=== PATIENT | male | born 1950 | race Caucasian/White ===

== ENCOUNTER 2017-08-13 15:26 | Outpatient (CLI) | payer MEDICARE | END 2017-08-13 15:27 | disposition home or self-care (01) | LOC: BICRAD 15:26 | PROVIDERS: ATTEND Family Medicine | DX: J20.9 Acute bronchitis, unspecified (principal) | CPT/HCPCS: 71046 ==

== ENCOUNTER 2017-08-29 09:26 | Outpatient (CLI) | payer MEDICARE ==
[2017-08-29] MEDS ORDERED: Iopamidol 370 76% 100 ML VIAL ONE (14:13)
== END 2017-08-29 09:27 | disposition home or self-care (01) ==
LOC: BICCT 09:26
PROVIDERS: ATTEND Family Medicine
DX: R05 Cough (principal); R63.4 Abnormal weight loss; J44.9 Chronic obstructive pulmonary disease, unspecified; I70.90 Unspecified atherosclerosis; K57.90 Diverticulosis of intestine, part unspecified, without perforation or abscess without bleeding
CPT/HCPCS: 71260; 74177

== ENCOUNTER 2018-11-24 09:42 | Outpatient (CLI) | payer MEDICARE ==
--- NOTE | 2018-11-24 10:05 | RAD ---
Exam: 1 view abdomen COMPARISON: None HISTORY: Renal calculi. FINDINGS: Nonspecific bowel gas pattern. No suspicious densities projecting over the expected course of either ureter or over either renal silhouette. Calcifications in the pelvis are presumably phleboliths. No osseous abnormalities IMPRESSION: Nonspecific bowel gas pattern. No radiographic evidence of nephrolithiasis or ureteral st ones.
== END 2018-11-24 09:43 | disposition home or self-care (01) ==
LOC: BICRAD 09:42
PROVIDERS: ATTEND Urology
DX: Z12.5 Encounter for screening for malignant neoplasm of prostate (principal); N20.0 Calculus of kidney; N48.9 Disorder of penis, unspecified
CPT/HCPCS: 36415; 74018; G0103

== ENCOUNTER 2020-01-19 09:47 | Outpatient (CLI) | payer MEDICARE ==
--- NOTE | 2020-01-19 11:08 | ULT ---
EXAM: US Abdominal CLINICAL HISTORY: Abdominal pain. COMPARISON: None. FINDINGS: Pancreas: The head of the pancreas in the body of the pancreas have a normal appearance. Remainder t he pancreas is obscured IVC: Visualized IVC has a normal caliber. Aorta: Atherosclerosis and mild irregularity of the abdominal aorta. There does appear to be dilatati on of the mid abdominal aorta the diameter of approximately 3.4 cm. There appears to be noncalcified atherosclerosis in the mid abdominal aorta, incompletely evaluated. Liver:Normal hepatic parenchymal echotexture. No hepatic masses or intrahepatic biliary dilatation. T he contour of the hepatic margin is maintained. Gallbladder: No sonographic evidence of cholelithiasis, gallbladder wall thickening or pericholecysti c fluid He's sign:Negative CBD: 0.26 cm common bile duct diameter Portal vein: Patent. Appropriate directional flow. Right kidney: Normal cortical echotexture. No hydronephrosis. Right kidney measuring 9.4 x 3.5 x 4.0 cm in length. Left kidney: Normal cortical echotexture. No hydronephrosis . Left kidney measuring 5.4 x 9.8 x 4.2 cm in length Spleen: Normal echotexture, measuring 11.4 cm IMPRESSION: 1. No sonographic evidence of cholelithiasis or cholecystitis 2. No evidence of hydronephrosis 3. Atherosclerosis and aneurysmal dilatation of the abdominal aorta. Correlation made with an abdomen pelvis CT 08/29/2017 doesn't demonstrate atherosclerosis and mild prominence of the infrarenal abdominal aorta.
== END 2020-01-19 09:48 | disposition home or self-care (01) ==
LOC: BICULT 09:47
PROVIDERS: ATTEND Family Medicine
DX: R10.84 Generalized abdominal pain (principal); I70.0 Atherosclerosis of aorta; I71.3 Abdominal aortic aneurysm, ruptured
CPT/HCPCS: 36415; 80053; 80061; 81001; 82150; 83690; 84153; 85025; 87086; 93975

== ENCOUNTER 2020-02-03 05:45 | Outpatient (CLI) | payer MEDICARE, OTHER ==
--- NOTE | 2020-02-03 10:10 | RAD ---
XR Chest Pa Lat STANDARD HISTORY: Preoperative evaluation COMPARISON: 08/13/2017 FINDINGS: The heart size is normal. The lungs are well expanded without focal areas of consolidation, pneumothorax or pleural effusions. Degenerative changes are present in the spine. IMPRESSION: No radiographic evidence of acute cardiopulmonary process.
[2020-02-03 14:13] LABS: #Basophils 0.1 thou/uL (0.0-0.2); #Eosinphils 0.2 thou/uL (0.0-0.7); #Monocytes 0.6 thou/uL (0.11-0.59); %Basophils 0.9 % (0.0-1.0); %Eosinophils 1.6 % (0.0-10.0); %Monocytes 5.8 % (0.0-10.0); %Neutrophils 71.7 % (42.0-75.0); Hemoglobin 13.2 g/dL (14.0-18.0); Mean Corpuscular HGB CONC 31.8 g/dL (32.0-36.0); Mean Corpuscular Hemoglobin 30.7 pg (27.0-31.0); Mean Corpuscular Volume 96.7 fL (78.0-98.0); Platelet Count 201 thou/uL (130-400); RBC Distribution Width 12.5 % (11.5-14.5); Red Blood Cell (RBC) Count 4.31 mill/uL (4.70-6.10); White Blood Cell (WBC) Count 9.8 thou/uL (4.8-10.8)
[2020-02-03 14:31] LABS: Anion Gap 13 mmol/L (10-20); BUN (Urea Nitrogen) 20 mg/dL (8.4-25.7); Calc. Creatinine Clearance 0 mL/min (70-130); Calcium 8.8 mg/dL (7.8-10.44); Carbon Dioxide 25 mmol/L (23-31); Chloride 106 mmol/L (98-107); Estimated GFR-MDRD 54; Glucose 94 mg/dL (80-115); Potassium 4.3 mmol/L (3.5-5.1); Sodium 140 mmol/L (136-145)
[2020-02-04 16:02] LABS: SARS-CoV-2 MS2 Positive; SARS-CoV-2 N Gene Negative; SARS-CoV-2 S Gene Negative; SARS-CoV-2 orf1ab Negative
--- NOTE | 2020-02-07 10:10 | EKG ---
Test Reason : Blood Pressure : / mmHG Vent. Rate : 077 BPM Atrial Rate : 077 BPM P-R Int : 130 ms QRS Dur : 088 ms QT Int : 412 ms P-R-T Axes : 067 083 040 degrees QTc Int : 466 ms Sinus rhythm with preamuture atrial complexes and premature ventricular complexes. Nonspecific ST abnormality Abnormal ECG When compared with ECG of 27-DEC-2012 18:40, Abberant conduction is now Present QT has lengthened Confirmed by NUNO DIAZ (2) on 02/07/2020 10:09:38 AM Referred By: JOE Confirmed By:NUNO DIAZ
== END 2020-02-03 05:46 | disposition home or self-care (01) ==
LOC: LABBT 05:45
PROVIDERS: ATTEND Internal Medicine Cardiovascular Disease
DX: Z01.818 Encounter for other preprocedural examination (principal); Z11.59 Encounter for screening for other viral diseases; I42.9 Cardiomyopathy, unspecified
CPT/HCPCS: 71046; 80048; 85025; 93005; U0003; 87635; 93010

== ENCOUNTER 2020-02-08 06:01 | Day surgery (SDC) | payer MEDICARE ==
[2020-01-31 13:19] VITALS: BMI 19.5
[2020-02-08] MEDS ORDERED: Heparin 10,000 UNITS/1 ML VIAL ONE (06:29)
[2020-02-08] MEDS ORDERED: Midazolam HCl 2 mg/2 ml Vial ONE (07:04)
[2020-02-08] MEDS ORDERED: Fentanyl 100 MCG/2 ML VIAL ONE (07:04)
[2020-02-08] MEDS ORDERED: Protamine Sulfate 50 MG/5 ML VIAL ONE (07:19)
[2020-02-08] MEDS ORDERED: Iopamidol 370 76% 100 ML VIAL ONE (10:03)
[2020-02-08] MEDS ORDERED: Iopamidol 370 76% 50 ML VIAL FS ONE (10:03)
[2020-02-08] MEDS ORDERED: PRALUENT PEN SC SCH (12:45)
[2020-02-08] MEDS ORDERED: ALPRAZolam 0.5 MG TAB PO SCH (15:00)
[2020-02-08] MEDS ORDERED: Carvedilol 6.25 MG TAB PO SCH (21:00)
[2020-02-09] MEDS ORDERED: Furosemide 20 MG TAB PO SCH (09:00)
[2020-02-09] MEDS ORDERED: Atorvastatin Calcium 10 MG TAB PO SCH (09:00)
[2020-02-09] MEDS ORDERED: Aspirin 81 mg Enteric Coated Tablet PO SCH (09:00)
== END 2020-02-08 14:55 | disposition home or self-care (01) ==
LOC: CCL 06:01
PROVIDERS: ATTEND Internal Medicine Cardiovascular Disease
PROC: 4A023N7 Measurement of Cardiac Sampling and Pressure, Left Heart, Percutaneous Approach (ICD-10-PCS; principal; 2020-02-08)
PROC: B2111ZZ Fluoroscopy of Multiple Coronary Arteries using Low Osmolar Contrast (ICD-10-PCS; 2020-02-08)
DX: I42.9 Cardiomyopathy, unspecified (principal); I25.10 Atherosclerotic heart disease of native coronary artery without angina pectoris; I49.3 Ventricular premature depolarization; I47.1 Supraventricular tachycardia; I10 Essential (primary) hypertension; E78.00 Pure hypercholesterolemia, unspecified; F17.210 Nicotine dependence, cigarettes, uncomplicated; F41.9 Anxiety disorder, unspecified; F32.9 Major depressive disorder, single episode, unspecified; Z79.82 Long term (current) use of aspirin; Z79.899 Other long term (current) drug therapy; Z88.1 Allergy status to other antibiotic agents
CPT/HCPCS: 85347; 93458; 99152; J1644; J2250; J2720; J3010; Q9967

== ENCOUNTER 2020-04-27 23:07 | Emergency (ER) | payer MEDICARE, OTHER ==
[2020-04-27] MEDS ORDERED: Aspirin 325 MG TAB ONE (23:29)
[2020-04-27 23:30] LABS: #Basophils 0.1 thou/uL (0.0-0.2); #Eosinphils 0.2 thou/uL (0.0-0.7); #Lymphocytes 2.3 thou/uL (1.20-3.40); #Monocytes 0.7 thou/uL (0.11-0.59); #Neutrophils 4.2 thou/uL (1.40-6.50); %Basophils 1.4 % (0.0-1.0); %Eosinophils 3.1 % (0.0-10.0); %Lymphocytes 31.3 % (21.0-51.0); %Monocytes 8.8 % (0.0-10.0); %Neutrophils 55.4 % (42.0-75.0); Hemoglobin 13.2 g/dL (14.0-18.0); Mean Corpuscular HGB CONC 33.7 g/dL (32.0-36.0); Mean Corpuscular Hemoglobin 33.2 pg (27.0-31.0); Mean Corpuscular Volume 98.4 fL (78.0-98.0); Mean Platelet Volume 7.1 fL (7.4-10.4); Platelet Count 197 thou/uL (130-400); Red Blood Cell (RBC) Count 3.97 mill/uL (4.70-6.10); White Blood Cell (WBC) Count 7.5 thou/uL (4.8-10.8)
[2020-04-27 23:50] LABS: ALT (SGPT) 15 U/L (8-55); AST (SGOT) 16 U/L (5-34); Albumin 3.9 g/dL (3.4-4.8); Alkaline Phosphatase 71 U/L (40-110); Anion Gap 13 mmol/L (10-20); BUN (Urea Nitrogen) 21 mg/dL (8.4-25.7); Bilirubin, Total 0.6 mg/dL (0.2-1.2); Calc. Creatinine Clearance 0 mL/min (70-130); Calcium 9.1 mg/dL (7.8-10.44); Carbon Dioxide 26 mmol/L (23-31); Chloride 106 mmol/L (98-107); Estimated GFR-MDRD 61; Globulin 2.7 g/dL (2.4-3.5); Glucose 117 mg/dL (80-115); Potassium 3.8 mmol/L (3.5-5.1); Protein, Total 6.6 g/dL (5.8-8.1); Sodium 141 mmol/L (136-145)
[2020-04-28 02:37] LABS: Troponin I 0.022 ng/mL (< 0.028)
[2020-04-28 05:34] LABS: Troponin I 0.017 ng/mL (< 0.028)
--- NOTE | 2020-04-28 05:45 | RAD ---
PORTABLE CHEST: 04/27/20 PROVIDED CLINICAL HISTORY: Chest pain. FINDINGS: comparison 03/10/20. Cardiac and mediastinal silhouette is unchanged in appearance. Left subclavian cardiac pacing device is again noted in similar position. Conspicuous chronic obstructive changes are seen. There is no foc al consolidation evident. The left lung base is not included, limiting evaluation for pleural fluid. There is a linear attenuation difference overlying the left lung apex. Lung markings are thought to b e seen peripheral to this although this is not completely certain. IMPRESSION: Linear attenuation difference involving the left lung apex, probably artifactual. Correlation with in spiration and expiratory radiographs is recommended for further evaluation. POS: LUTHER
--- NOTE | 2020-04-28 08:11 | CT ---
PRELIMINARY REPORT/[facility]/EMERGENCY AFTER HOURS PROCEDURE: EXAM: CTA Chest with Intravenous Contrast CLINICAL HISTORY: M69, Patient presents with 1 hour of central chest pain. He denies associated symptoms. He has no lig htheadedness or dizziness, shortness of breath, nausea, cough, or fever. He says he has not had pain like this in the past. Of note, patient had an internal defibrillator placed last month. TECHNIQUE: Axial CTA images of the chest with intravenous contrast. Three-dimensional MIP/volume rendered reform ations were performed. CONTRAST: With; ISO 370 100 COMPARISON: None provided. FINDINGS: PULMONARY ARTERIES There is no intraluminal filling defect suspicious for PE. AORTA No thoracic aortic aneurysm or dissection. LUNGS Emphysema, relatively basilar-predominant. This is nonspecific but raises the possibility of alpha-1 antitrypsin deficiency. Calcified granuloma in the anterior left upper lobe PLEURAL SPACES Moderate pericardial effusion. HEART AND MEDIASTINUM Coronary artery disease. Small hiatal hernia. BONES No focal osseous abnormality or acute fracture. UPPER ABDOMEN Images through the upper abdomen are unremarkable. IMPRESSION: 1. There is no intraluminal filling defect suspicious for PE. 2. Moderate pericardial effusion. 3. Coronary artery disease. 4. Small hiatal hernia. 5. Emphysema, relatively basilar-predominant distribution. This is nonspecific but raises the possibi lity of alpha-1 antitrypsin deficiency. ELECTRONICALLY SIGNED BY: Simón Cook MD Apr 28, 2020 2:12:47 AM CDT This report is intended for review by the ordering physician only, in accordance of law. If you recei ve this report in error, please call [facility] at [phone]. FINAL REPORT EMERGENT AFTER HOURS CTA OF THE CHEST WITH CONTRAST: FINDINGS/IMPRESSION: I agree with the findings and impression given in the preliminary report per [facility] physici an. 1. No evidence of pulmonary thromboembolism. 2. Pericardial effusion. 3. Emphysema. POS: YORDANA
[2020-04-28] MEDS ORDERED: Iopamidol-370 76% 500 ML 1 ML ONE (11:25)
== END 2020-04-28 06:06 | disposition home or self-care (01) ==
LOC: ERS 23:07
DX: I42.9 Cardiomyopathy, unspecified (principal); I11.0 Hypertensive heart disease with heart failure; I50.9 Heart failure, unspecified; E78.5 Hyperlipidemia, unspecified; E78.00 Pure hypercholesterolemia, unspecified; F41.9 Anxiety disorder, unspecified; F17.290 Nicotine dependence, other tobacco product, uncomplicated; Z79.899 Other long term (current) drug therapy; Z79.82 Long term (current) use of aspirin; Z85.828 Personal history of other malignant neoplasm of skin
CPT/HCPCS: 36415; 71045; 71275; 80053; 84484; 85025; 93005; 94760; Q9967

== ENCOUNTER 2020-05-08 03:49 | Emergency (ER) | payer MEDICARE ==
[2020-05-08 04:52] LABS: #Basophils 0.1 thou/uL (0.0-0.2); #Eosinphils 0.3 thou/uL (0.0-0.7); #Lymphocytes 2.7 thou/uL (1.20-3.40); #Monocytes 0.5 thou/uL (0.11-0.59); #Neutrophils 3.4 thou/uL (1.40-6.50); %Basophils 0.9 % (0.0-1.0); %Eosinophils 3.7 % (0.0-10.0); %Lymphocytes 39.2 % (21.0-51.0); %Monocytes 6.9 % (0.0-10.0); %Neutrophils 49.2 % (42.0-75.0); Mean Corpuscular HGB CONC 33.1 g/dL (32.0-36.0); Mean Corpuscular Hemoglobin 32.7 pg (27.0-31.0); Mean Corpuscular Volume 98.9 fL (78.0-98.0); Mean Platelet Volume 7.3 fL (7.4-10.4); Platelet Count 180 thou/uL (130-400); RBC Distribution Width 12.9 % (11.5-14.5); Red Blood Cell (RBC) Count 3.67 mill/uL (4.70-6.10); White Blood Cell (WBC) Count 6.9 thou/uL (4.8-10.8)
[2020-05-08 05:14] LABS: ALT (SGPT) 15 U/L (8-55); AST (SGOT) 17 U/L (5-34); Albumin 3.7 g/dL (3.4-4.8); Alkaline Phosphatase 70 U/L (40-110); Anion Gap 15 mmol/L (10-20); BUN (Urea Nitrogen) 17 mg/dL (8.4-25.7); Bilirubin, Total 0.6 mg/dL (0.2-1.2); Calc. Creatinine Clearance 0 mL/min (70-130); Carbon Dioxide 25 mmol/L (23-31); Chloride 106 mmol/L (98-107); Estimated GFR-MDRD 73; Globulin 2.6 g/dL (2.4-3.5); Glucose 84 mg/dL (80-115); Potassium 3.9 mmol/L (3.5-5.1); Protein, Total 6.3 g/dL (5.8-8.1); Sodium 142 mmol/L (136-145)
--- NOTE | 2020-05-08 08:01 | RAD ---
RADIOGRAPH CHEST 1 VIEW: DATE: 05/08/2020 4:34 AM HISTORY: 69-year-old male with hypertension FINDINGS: There is hyperinflation of the lungs, consistent with COPD. There is no evidence of airspace density, cardiomegaly, pulmonary edema, or pneumothorax. The lateral costophrenic angles are not effaced. There is a dual-lead left subclavian AICD. IMPRESSION: 1) No acute pulmonary findings. 2) emphysema. 3) automatic implantable cardioverter-defibrillator.
== END 2020-05-08 06:16 | disposition home or self-care (01) ==
LOC: ERS 03:49
DX: I11.0 Hypertensive heart disease with heart failure (principal); I43 Cardiomyopathy in diseases classified elsewhere; I50.9 Heart failure, unspecified; E78.5 Hyperlipidemia, unspecified; E78.00 Pure hypercholesterolemia, unspecified; F41.9 Anxiety disorder, unspecified; F17.290 Nicotine dependence, other tobacco product, uncomplicated; Z79.82 Long term (current) use of aspirin; Z79.899 Other long term (current) drug therapy
CPT/HCPCS: 36415; 71045; 80053; 83880; 84484; 85025

== ENCOUNTER 2020-06-11 06:42 | Observation (INO) | payer MEDICARE ==
[2020-06-11 07:53] LABS: #Basophils 0.1 thou/uL (0.0-0.2); #Eosinphils 0.2 thou/uL (0.0-0.7); #Lymphocytes 2.2 thou/uL (1.20-3.40); #Monocytes 0.4 thou/uL (0.11-0.59); #Neutrophils 3.3 thou/uL (1.40-6.50); %Basophils 1.2 % (0.0-1.0); %Eosinophils 2.5 % (0.0-10.0); %Lymphocytes 35.7 % (21.0-51.0); %Monocytes 6.6 % (0.0-10.0); Hemoglobin 13.9 g/dL (14.0-18.0); Mean Corpuscular HGB CONC 34.9 g/dL (32.0-36.0); Mean Corpuscular Hemoglobin 34.9 pg (27.0-31.0); Mean Corpuscular Volume 99.9 fL (78.0-98.0); Mean Platelet Volume 7.4 fL (7.4-10.4); Platelet Count 184 thou/uL (130-400); Red Blood Cell (RBC) Count 3.98 mill/uL (4.70-6.10); White Blood Cell (WBC) Count 6.2 thou/uL (4.8-10.8)
--- NOTE | 2020-06-11 08:08 | RAD ---
RADIOGRAPH CHEST 1 VIEW: DATE: 06/11/2020 HISTORY: 69-year-old male with worsening hypertension. FINDINGS: There is hyperinflation of the lungs, consistent with COPD. There is no evidence of airspace density, cardiomegaly, pulmonary edema, or pneumothorax. The lateral costophrenic angles are not effaced. There is a left subclavian AICD. IMPRESSION: 1) No acute pulmonary findings. 2) emphysema.
[2020-06-11 08:16] LABS: ALT (SGPT) 16 U/L (8-55); AST (SGOT) 18 U/L (5-34); Albumin 3.9 g/dL (3.4-4.8); Alkaline Phosphatase 70 U/L (40-110); Anion Gap 14 mmol/L (10-20); BUN (Urea Nitrogen) 21 mg/dL (8.4-25.7); Bilirubin, Total 0.6 mg/dL (0.2-1.2); Calc. Creatinine Clearance 0 mL/min (70-130); Calcium 9.9 mg/dL (7.8-10.44); Carbon Dioxide 25 mmol/L (23-31); Chloride 107 mmol/L (98-107); Estimated GFR-MDRD 56; Globulin 3.1 g/dL (2.4-3.5); Glucose 90 mg/dL (80-115); Potassium 4.3 mmol/L (3.5-5.1); Sodium 142 mmol/L (136-145)
--- NOTE | 2020-06-11 09:31 | PDOC.FPRHP ---
- History of Present Illness Chief Complaint: SOB, lightheadedness History of Present Illness: Patient is a 69 yo male with PMH of HFrEF s/p AICD, HTN, and HLD who presents to the ED for SOB and lightheadedness. Patient reports that he meant to sleep around 1 am this morning. He woke up shortly after gasping for breath. He awas able to catch his breath and go back to sleep, but it occurred two more time. The last time it happened he felt as if he couldn't catch his breath. He checked is O2 saturation and it was 98-99%. He went to use the restroom and he is normally a little dizzy upon standing, but this time he experienced the dizziness for a much longer period of time. He reports checking his BP at home and it was 138/85. He continued to feel lightheaded after lying down. He decided to come to the ER because he fears that he is not getting enough blood flow to his head due to his decreased EF. He reports that he was diagnosed with CRISTOBAL years ago and used to use a CPAP at night but has not used one in years. ED Course: EKG and CXR - Allergies/Adverse Reactions Allergies Allergy/AdvReac Type Severity Reaction Status Date / Time levofloxacin [From Levaquin] Allergy Verified 01/31/20 13:19 - Home Medications Medication Instructions Recorded Confirmed Type ALPRAZolam [Xanax] 1 - 2 tab PO TID 06/11/13 03/10/20 History Pitavastatin Calcium [Livalo] 2 mg PO DAILY 06/11/13 03/10/20 History Alirocumab [Praluent Pen] 75 mg SQ Q14D 01/31/20 03/10/20 History Aspirin [Ecotrin Low Strength] 81 mg PO DAILY 01/31/20 03/10/20 History Carvedilol Phosphate [Carvedilol 1 tab PO BID 01/31/20 03/10/20 History ER] Furosemide [Lasix] 1 tab PO DAILY 01/31/20 03/10/20 History Sacubitril/Valsartan [Entresto 24 1 each PO DAILY 01/31/20 03/10/20 History mg-26 mg Tablet] - History PMHx: HFrEF with AICD, HTN, HLD, Diverticula, anxiety, depression PSHx: AICD placement, Cath on 02/2020 FHx: HTN, HLD Social: Lifetime smoker, quit 5-6 months ago, was smoking a pack per day; Used to drink less than 1 drink/week, but has not had any alcohol since January; denies drugs - Review of Systems General: reports: weight/appetite/sleep changes. denies: fever/chills, fatigue Eyes: denies: eye pain, vision changes ENT: denies: nasal congestion, rhinorrhea Respiratory: reports: shortness of breath. denies: cough, congestion Cardiovascular: reports: paroxysmal nocturnal dyspnea. denies: chest pain Gastrointestinal: denies: nausea, vomiting, abdominal pain Genitourinary: denies: incontinence, dysuria Skin: denies: rashes, lesions Musculoskeletal: denies: pain, swelling Neurological: denies: numbness, syncope Psychological: reports: anxiety, depression - Vital signs BP: 121/88 HR: 68 RR: 12 Tmax: 97.7 Pox: 98% on RA Wt: 53 - Physical Exam Constitutional: NAD, awake, alert and oriented -Constitutional: cachecitic HEENT: normocephalic and atraumatic, grossly normal vision, grossly normal hearing, MMM Neck: supple, FROM Heart: RRR, normal S1/S2, no murmurs/rubs/gallops -Lungs: Diffuse rhonchi Abdomen: soft, non-tender, bowel sounds present Musculoskeletal: normal structure, normal tone Neurological: no focal deficit, normal sensation Skin: no rash/lesions, no jaundice Heme/Lymphatic: no unusual bruising or bleeding, no purpura, no petechia Psychiatric: normal mood and affect, good judgment and insight, intact recent and remote memory FMR H&P: Results - Labs Result Diagrams: 06/11/20 07:17 06/11/20 07:17 Lab results: WBC 6.2 thou/uL (4.8-10.8) 06/11/20 07:17 Hgb 13.9 g/dL (14.0-18.0) L 06/11/20 07:17 Hct 39.7 % (42.0-52.0) L 06/11/20 07:17 MCV 99.9 fL (78.0-98.0) H 06/11/20 07:17 Plt Count 184 thou/uL (130-400) 06/11/20 07:17 Neutrophils % 54.0 % (42.0-75.0) 06/11/20 07:17 Sodium 142 mmol/L (136-145) 06/11/20 07:17 Potassium 4.3 mmol/L (3.5-5.1) 06/11/20 07:17 Chloride 107 mmol/L (98-107) 06/11/20 07:17 Carbon Dioxide 25 mmol/L (23-31) 06/11/20 07:17 BUN 21 mg/dL (8.4-25.7) 06/11/20 07:17 Creatinine 1.27 mg/dL (0.7-1.3) 06/11/20 07:17 Glucose 90 mg/dL (80-115) 06/11/20 07:17 Calcium 9.9 mg/dL (7.8-10.44) 06/11/20 07:17 Total Bilirubin 0.6 mg/dL (0.2-1.2) 06/11/20 07:17 AST 18 U/L (5-34) 06/11/20 07:17 ALT 16 U/L (8-55) 06/11/20 07:17 Alkaline Phosphatase 70 U/L (40-110) 06/11/20 07:17 B-Natriuretic Peptide 11.2 pg/mL (0-100) 06/11/20 07:17 Serum Total Protein 7.0 g/dL (5.8-8.1) 06/11/20 07:17 Albumin 3.9 g/dL (3.4-4.8) 06/11/20 07:17 - EKG Interpretation EKG: Normal SR - Radiology Interpretation Chest x-ray Status: image reviewed by me, report reviewed by me Additional comment: No acute cardiopulmonary process Evidence of emphysema FMR H&P: A/P - Plan Paroxysmal Nocturnal Dyspnea likely 2/2 to suspected COPD vs. CRISTOBAL vs. Cardiac etiology - lifetime smoker, quit smoking cigarettes 5-6 months ago, continues to vape - CXR: emphysema, no acute cardiopulmonary process - will schedule q6hr Duonebs - Hx of HFrEF: reports echo in January and Cath on 02/2020, Cath showed EF of 20%, AICD in place; no signs of fluid overload on exam; BNP: 11.2 - will order echo - trops negative, will trend x3 - will need PFTs outpatient - recommend repeat sleep study as outpatient, will order CPAP - consider DC home with inhaler - admit for observation on tele Presyncope likely 2/2 to orthostatic hypotension vs. arrythmia - will obtain orthostatic vitals - will monitor overnight on tele - will obtain echo as above Severe protein calorie malnutrition - reports chronic issues with appetite - prealbumin ordered - dietary consulted HTN - continue home meds HLD - continue home meds Anxiety and Depression - continue home meds Tobacco abuse - aware - encourage complete cessation Code: FULL Diet: HH Fluids: SL PPx: SCDs, Sintia score of 1 Dispo: will admit to tele for further monitoring FMR H&P: Upper Level - Plan Date/Time: 06/11/20930 Bianka Deluca, have evaluated this patient and agree with findings/plan as outlined by music intern resident. Pertinent changes/additions are listed here. HPI: 69 yo m with PMH of HFrEF S/P AICD placed 02/2020, CRISTOBAL not using CPAP, hx tobacco abuse >50 PY hx, presents for 3 episodes of paroxysmal nocturnal dyspnea overnight. Patient awoke from his sleep, states he had difficulty catching his breath the last time so he presented to the ED. He also reports chronic pre- syncope symptoms due to his CHF, and an episode of pre-syncope which did not resolve even after lying flat this morning. In the ED BNP was normal, CXR was negative, vitals were stable. PEx: General: Cachectic Cardiac: RRR, no murmurs Lungs: bilat upper lobe mild expiratory rhonchi Ext: no BLE swelling A/P: #Paroxysmal Nocturnal Dyspnea Ddx includes cardiac (less likely CHF with BNP 11) but may be anatomic/arrythmia, infectious, pulm consider CRISTOBAL vs COPD vs other. -Likely COPD/Emphysema as seen on CXR and recent CT chest, with mild expiratory rhonchi on exam. Possible acute exacerbation. He will need outpatient PFTs. HORACE q6h nebs -EKG and trop wnl, trend trop x3. Echo pending. Interrogate AICD. -Low suspicion for PE as breathing comfortably now with normal O2 Sats - Normal CBC, CXRX neg for pneumonia but shows likely COPD. Covid swab pending. Pre-Syncope -Echo pending, Orthostatics pending, Interrogate AICD. Consider carotid US imaging. Monitor on tele overnight. For management of other chronic problems, please see music intern note. Kranthi Arroyo MD PGY3
[2020-06-11] MEDS ORDERED: Acetaminophen 325 MG TAB PO PRN (10:17)
[2020-06-11 10:54] LABS: Troponin I Less than 0.010 ng/mL (< 0.028)
[2020-06-11 13:54] LABS: Troponin I 0.022 ng/mL (< 0.028)
[2020-06-11 15:41] VITALS: BMI 17.2
[2020-06-11 17:28] LABS: Troponin I 0.013 ng/mL (< 0.028)
[2020-06-11] MEDS ORDERED: Promethazine 25 MG TAB PO PRN (19:00)
[2020-06-11] MEDS: Carvedilol 3.125 MG TAB PO SCH (20:40)
[2020-06-11] MEDS: ALPRAZolam 0.5 MG TAB PO PRN (20:41)
[2020-06-11] MEDS ORDERED: Atorvastatin Calcium 10 MG TAB PO SCH (21:00)
[2020-06-12 04:49] LABS: #Eosinphils 0.2 thou/uL (0.0-0.7); #Lymphocytes 2.3 thou/uL (1.20-3.40); #Monocytes 0.4 thou/uL (0.11-0.59); %Basophils 0.8 % (0.0-1.0); %Eosinophils 2.9 % (0.0-10.0); %Lymphocytes 38.5 % (21.0-51.0); %Monocytes 6.2 % (0.0-10.0); %Neutrophils 51.7 % (42.0-75.0); Hemoglobin 12.7 g/dL (14.0-18.0); Mean Corpuscular HGB CONC 33.9 g/dL (32.0-36.0); Mean Corpuscular Hemoglobin 33.7 pg (27.0-31.0); Mean Corpuscular Volume 99.3 fL (78.0-98.0); Platelet Count 163 thou/uL (130-400); RBC Distribution Width 12.1 % (11.5-14.5); Red Blood Cell (RBC) Count 3.76 mill/uL (4.70-6.10); White Blood Cell (WBC) Count 5.8 thou/uL (4.8-10.8)
[2020-06-12 05:04] LABS: Anion Gap 12 mmol/L (10-20); BUN (Urea Nitrogen) 20 mg/dL (8.4-25.7); Calc. Creatinine Clearance 50 mL/min (70-130); Calcium 9.2 mg/dL (7.8-10.44); Carbon Dioxide 26 mmol/L (23-31); Chloride 108 mmol/L (98-107); Estimated GFR-MDRD 73; Glucose 87 mg/dL (80-115); Potassium 4.1 mmol/L (3.5-5.1); Sodium 142 mmol/L (136-145)
[2020-06-12] MEDS: ALPRAZolam 0.5 MG TAB PO PRN (06:12)
--- NOTE | 2020-06-12 06:26 | PDOC.FM ---
- Subjective Subjective: Patient reports that he is feeling much better. Denies dizziness/lightheadedness unless he stands too quickly which is his baseline. - Objective Vital Signs & Weight: Vital Signs (12 hours) Temp Pulse Resp BP Pulse Ox 06/12/20 04:00 97.6 F 66 15 98/65 96 06/11/20 23:49 92 18 96 06/11/20 20:34 97.5 F L 61 16 116/72 99 Weight Weight 51.5 kg I&O: 06/10/20 06/11/20 06/12/20 06:59 06:59 06:59 Intake Total 680 Output Total 550 Balance 130 Result Diagrams: 06/12/20 04:25 06/12/20 04:24 Phys Exam - Physical Examination Constitutional: NAD Respiratory: no wheezing, no rales, no rhonchi, clear to auscultation bilateral Cardiovascular: RRR, no significant murmur, no rub Gastrointestinal: soft, non-tender, no distention, positive bowel sounds Dx/Plan - Plan Plan: Paroxysmal Nocturnal Dyspnea likely 2/2 to suspected COPD vs. CRISTOBAL vs. Cardiac etiology - lifetime smoker, quit smoking cigarettes 5-6 months ago, continues to vape - Hx of HFrEF: reports echo in January and Cath on 02/2020, Cath showed EF of 20%, AICD in place; BNP: 11.2 on admission - CXR: emphysema, no acute cardiopulmonary process - q6hr Duonebs - trops negative - PFTs and sleep study outpatient - ECHO today - consider DC home with inhaler Presyncope likely 2/2 to orthostatic hypotension vs. arrythmia - orthostatic vitals wnl Protein calorie malnutrition - reports chronic issues with appetite - prealbumin, albumin wnl - dietary consulted HTN - continue home meds HLD - continue home meds Anxiety and Depression - continue home meds Tobacco abuse - aware - encourage complete cessation Code: FULL Diet: HH Fluids: SL PPx: SCDs, Sintia score of 1 Dispo: Potential DC today pending ECHO Addendum - Attending - Attending Attestation Date/Time: 06/12/20 1123 I personally evaluated the patient and discussed the management with Dr. Casper. I agree with the History, Examination, Assessment and Plan documented above with any addition or exceptions noted below.
[2020-06-12] MEDS ORDERED: predniSONE 20 MG TAB PO SCH (08:45)
[2020-06-12] MEDS: Carvedilol 3.125 MG TAB PO SCH (08:49)
[2020-06-12] MEDS ORDERED: Prenatal Vitamin 1 TAB PO SCH (09:00)
[2020-06-12] MEDS ORDERED: Furosemide 20 MG TAB PO SCH (09:00)
[2020-06-12] MEDS ORDERED: Aspirin 81 mg Enteric Coated Tablet PO SCH (09:00)
[2020-06-12 11:11] VITALS: BP 114/83; TEMP 97.6
[2020-06-12] MEDS ORDERED: FLU VACC QS2020-21(65YR UP)/PF 240 MCG/0.7 ML SYRINGE IM ONE (16:00)
--- NOTE | 2020-06-12 21:04 | DIS ---
DATE OF ADMISSION: 06/11/2020 DATE OF DISCHARGE: 06/12/2020 RESIDENT: Keith Casper MD ADMITTING ATTENDING: Stephany Solano MD DISCHARGE ATTENDING: Stephany Solano MD PROCEDURES: The patient had a transthoracic echo. Result was not finalized by the time the patient left. The patient would like to follow up through cardiology office. PRIMARY DIAGNOSIS: Paroxysmal nocturnal dyspnea with presyncope. SECONDARY DIAGNOSES: Obstructive sleep apnea, heart failure with reduced ejection fraction status post AICD placement, hypertension, hyperlipidemia, depression, anxiety, severe protein calorie malnutrition, and chronic obstructive pulmonary disease. DISCHARGE MEDICATIONS: 1. Alprazolam 0.5 mg one to two tabs p.o. t.i.d. p.r.n. 2. Entresto one tab p.o. b.i.d. 3. Aspirin 81 mg p.o. QD. 4. Furosemide 20 mg p.o. daily. 5. Coreg 10 mg p.o. daily. 6. vitamin 1 tab p.o. daily. 7. Phenergan 25 mg p.o. q.6 hours p.r.n. 8. Prednisone 40 mg p.o. q.a.m. x4 days. 9. Spiriva 2 puffs daily for 30 days. 10. Combivent 1 puff q.i.d. p.r.n. HISTORY OF PRESENT ILLNESS/HOSPITAL COURSE: The patient is a 69-year-old male with past medical history Of CRISTOBAL, suspected COPD, and heart failure with reduced ejection fraction status post AICD, who presented to the ER due to shortness of breath and lightheadedness. He reports that he woke up gasping for breath. His O2 saturation and blood pressure were normal at home. He does not use CPAP at home and has not used one in years. In the ER, the patient's BNP was 11.8. The patient was diuresed and morning after admission, the patient felt much better and was breathing better. The patient received DuoNebs q.6 hours. Echocardiogram was repeated on 06/12 with results are not back at the time of discharge. The patient presumed to have COPD given chest x-ray showing significant lung hyperinflation bilaterally. No evidence of any other acute processes. The patient also with wheezing and mild crackles bilaterally. The patient stated that he would prefer if cardiology office would inform him of echo results. We will keep an eye out for the results as well. DISPOSITION: Stable. DISCHARGE INSTRUCTIONS: 1. Location: Home. 2. Diet: Heart healthy. 3. Activity: As tolerated. 4. FOLLOWUP: The patient should follow up with Dr. Goetz his PCP, within 2 weeks. The patient should follow up with Dr. Wheeler, Cardiology, within 2 weeks. 5. The patient with presumed diagnosis of COPD. Discussed the other testing such as pulmonary function test may be obtained outpatient to confirm diagnosis. Started on inhalers at home as above. Job ID: [id number] [facility]
[2020-06-13] MEDS ORDERED: predniSONE 20 MG TAB PO SCH (08:00)
== END 2020-06-12 12:50 | disposition home or self-care (01) ==
LOC: ERS 06:42 → ERHOLD 10:11 → 2NO 15:47
PROVIDERS: ADMIT Family Medicine; ATTEND Family Medicine
DX: R55 Syncope and collapse (principal); R06.00 Dyspnea, unspecified; I11.0 Hypertensive heart disease with heart failure; I50.20 Unspecified systolic (congestive) heart failure; F17.290 Nicotine dependence, other tobacco product, uncomplicated; E78.5 Hyperlipidemia, unspecified; F41.9 Anxiety disorder, unspecified; F32.9 Major depressive disorder, single episode, unspecified; E43 Unspecified severe protein-calorie malnutrition; J44.9 Chronic obstructive pulmonary disease, unspecified; Z79.82 Long term (current) use of aspirin; Z79.899 Other long term (current) drug therapy; Z88.1 Allergy status to other antibiotic agents; Z95.810 Presence of automatic (implantable) cardiac defibrillator
CPT/HCPCS: 36415; 71045; 80048; 80053; 83880; 84134; 84484; 85025; 93005; 93306; 94640; G0378; J7512; J7620

== ENCOUNTER 2021-01-18 09:30 | Outpatient (CLI) | payer MEDICARE | END 2021-01-18 09:31 | disposition home or self-care (01) | LOC: BICRAD 09:30 | PROVIDERS: ATTEND Internal Medicine Critical Care Medicine | DX: R06.00 Dyspnea, unspecified (principal) | CPT/HCPCS: 71046 ==

== ENCOUNTER 2021-05-17 18:30 | Outpatient (CLI) | payer MEDICARE | END 2021-05-17 18:31 | disposition home or self-care (01) | LOC: SLEEPLAB 18:30 | PROVIDERS: ATTEND Internal Medicine Critical Care Medicine | DX: G47.33 Obstructive sleep apnea (adult) (pediatric) (principal); R06.83 Snoring; J44.9 Chronic obstructive pulmonary disease, unspecified; I10 Essential (primary) hypertension; F41.9 Anxiety disorder, unspecified; G47.00 Insomnia, unspecified | CPT/HCPCS: 95806 ==

== ENCOUNTER 2022-05-13 08:45 | Outpatient (CLI) | payer MEDICARE | END 2022-05-13 08:46 | disposition home or self-care (01) | LOC: BICULT 08:45 | PROVIDERS: ATTEND Family Medicine | DX: R10.84 Generalized abdominal pain (principal); I71.40 Abdominal aortic aneurysm, without rupture, unspecified | CPT/HCPCS: 76700 ==

== ENCOUNTER 2022-11-21 07:58 | Outpatient (CLI) | payer MEDICARE | END 2022-11-21 07:59 | disposition home or self-care (01) | LOC: CT 07:58 | PROVIDERS: ATTEND Thoracic Surgery (Cardiothoracic Vascular Surgery) | DX: I71.40 Abdominal aortic aneurysm, without rupture, unspecified (principal); I71.43 Infrarenal abdominal aortic aneurysm, without rupture; I74.09 Other arterial embolism and thrombosis of abdominal aorta | CPT/HCPCS: 74174; 82565 ==

== ENCOUNTER 2023-01-13 11:00 | Inpatient (IN) | payer MEDICARE ==
[2023-01-13 12:30] LABS: Hemoglobin 16.2 g/dL (13.5-17.5); Mean Corpuscular HGB CONC 33.3 g/dL (32.0-36.0); Mean Corpuscular Hemoglobin 32.9 pg (27.0-33.0); Mean Platelet Volume 9.5 fl (7.4-10.4); Platelet Count 243 10x3/uL (150-450); RBC Distribution Width 13.2 % (11.5-14.5); Red Blood Cell (RBC) Count 4.92 10x6/uL (4.32-5.72); White Blood Cell (WBC) Count 7.5 10x3/uL (3.5-10.5)
[2023-01-13 12:35] LABS: Anion Gap 10 mmol/L (10-20); BUN (Urea Nitrogen) 18 mg/dL (8.4-25.7); Calc. Creatinine Clearance 0 mL/min (70-130); Calcium 9.5 mg/dL (7.8-10.44); Carbon Dioxide 26 mmol/L (23-31); Chloride 107 mmol/L (98-107); Estimated GFR 64; Glucose 92 mg/dL (83-110); Potassium 4.2 mmol/L (3.5-5.1); Sodium 139 mmol/L (136-145)
[2023-01-14] MEDS ORDERED: Rocuronium Bromide 10 MG/ML (10ML VIAL) ONE (06:15)
[2023-01-14] MEDS ORDERED: Ondansetron PF 4 MG/2 ML Vial ONE (06:15)
[2023-01-14] MEDS ORDERED: NEOSTIGMINE 3 MG/3 ML SYR 3 MG/3 ML SYRINGE ONE (06:15)
[2023-01-14] MEDS ORDERED: Lidocaine 1% PF 5 ML VIAL ONE (06:15)
[2023-01-14] MEDS ORDERED: GLYCOPYRROLATE/PF 0.2 MG/ML VIAL ONE (06:15)
[2023-01-14] MEDS ORDERED: Heparin 5,000 UNITS/ML VIAL ONE (06:36)
[2023-01-14] MEDS ORDERED: Protamine Sulfate 50 MG/5 ML VIAL ONE (06:36)
[2023-01-14] MEDS ORDERED: Albumin 5% 0 ML ONE (06:40)
[2023-01-14] MEDS ORDERED: fentaNYL PF 100 MCG/2 ML SYRINGE ONE (06:40)
[2023-01-14] MEDS ORDERED: Norepinephrine 4 MG/4 ML VIAL ONE (06:40)
[2023-01-14] MEDS ORDERED: Vasopressin 20 UNITS/ML VIAL ONE (06:40)
[2023-01-14] MEDS ORDERED: Midazolam HCl 2 mg/2 ml Vial ONE (06:40)
[2023-01-14] MEDS ORDERED: Phenylephrine 10 MG/ML VIAL ONE (06:47)
[2023-01-14] MEDS ORDERED: Heparin 10,000 UNITS/ 10 ML VIAL ONE ×2 (06:59→07:27)
[2023-01-14] MEDS ORDERED: Bupivacaine/Epinephrine 0.25% 30 ML VIAL ONE (07:10)
[2023-01-14] MEDS ORDERED: Nitroglycerin 50 MG/250 ML BOT 0 ML ONE (07:12)
[2023-01-14] MEDS ORDERED: Sodium Chloride 0.9% 100 ML ONE (07:19)
[2023-01-14] MEDS ORDERED: CEFAZOLIN 2 GM VIAL ONE ×2 (07:19→14:38)
[2023-01-14] MEDS ORDERED: Ondansetron HCl/PF 4 MG/2 ML Vial IVP PRN (09:27)
[2023-01-14] MEDS ORDERED: traMADol HCl 50 MG TAB PO PRN (09:30)
[2023-01-14] MEDS ORDERED: Lactated Ringer's 1,000 ML IV SCH (09:30)
[2023-01-14] MEDS ORDERED: Phenylephrine 40 MG in Sodium Chloride 0.9% 250 ML 250 ML IVPB PRN (09:30)
[2023-01-14] MEDS ORDERED: Ondansetron PF 4 MG/2 ML Vial IVP PRN (09:30)
[2023-01-14] MEDS ORDERED: fentaNYL 50 mcg/mL 1 mL Vial SLOW IVP PRN ×2 (09:30)
[2023-01-14] MEDS ORDERED: Acetaminophen 325 MG TAB PO PRN (09:30)
[2023-01-14] MEDS ORDERED: Ipratropium/Albuterol 3 ML NEB NEB PRN (09:30)
[2023-01-14] MEDS ORDERED: niCARdipine 25 MG in Sodium Chloride 0.9% 250 ML 250 ML IVPB PRN (09:30)
[2023-01-14] MEDS ORDERED: fentaNYL 50 mcg/mL 1 mL Vial ONE ×2 (12:36→14:47)
[2023-01-14] MEDS: CEFAZOLIN 2 GM in Sodium Chloride 0.9% 100 ML IVPB SCH ×2 (14:43→21:41)
[2023-01-14] MEDS ORDERED: ALPRAZolam 0.5 MG TAB PO SCH (15:00)
[2023-01-14] MEDS: ALPRAZolam 0.5 MG TAB PO SCH ×2 (15:29→20:49)
[2023-01-14 15:41] VITALS: BMI 22.3
[2023-01-14] MEDS: Sodium Chloride 0.9% 1,000 ML IV SCH (18:27)
[2023-01-14] MEDS: Carvedilol 3.125 MG TAB PO SCH (20:49)
[2023-01-14] MEDS ORDERED: Sacubitril 24MG/Valsartan 26 MG TAB PO SCH (21:00)
[2023-01-14] MEDS: Sacubitril 24MG/Valsartan 26 MG TAB PO SCH (21:40)
[2023-01-15 04:44] LABS: #Eosinphils 0.2 thou/uL (0.0-0.7); #Monocytes 0.7 thou/uL (0.11-0.59); #Neutrophils 6.2 thou/uL (1.40-6.50); %Basophils 0.4 % (0.0-1.0); %Eosinophils 1.9 % (0.0-10.0); %Lymphocytes 19.9 % (21.0-51.0); %Neutrophils 69.6 % (42.0-75.0); Hemoglobin 12.6 g/dL (14.0-18.0); Mean Corpuscular HGB CONC 33.3 g/dL (32.0-36.0); Mean Corpuscular Hemoglobin 32.9 pg (27.0-31.0); Mean Corpuscular Volume 98.7 fl (78.0-98.0); Mean Platelet Volume 9.7 fL (7.4-10.4); Platelet Count 156 10x3/uL (130-400); RBC Distribution Width 13.2 % (11.5-14.5); Red Blood Cell (RBC) Count 3.83 mill/uL (4.70-6.10)
[2023-01-15 05:07] LABS: Anion Gap 11 mmol/L (10-20); BUN (Urea Nitrogen) 14 mg/dL (8.4-25.7); Calc. Creatinine Clearance 64 mL/min (70-130); Calcium 8.2 mg/dL (7.8-10.44); Carbon Dioxide 20 mmol/L (23-31); Chloride 111 mmol/L (98-107); Estimated GFR 80; Glucose 103 mg/dL (83-110); Potassium 3.6 mmol/L (3.5-5.1); Sodium 138 mmol/L (136-145)
[2023-01-15] MEDS: CEFAZOLIN 2 GM in Sodium Chloride 0.9% 100 ML IVPB SCH (05:37)
[2023-01-15] MEDS: Sodium Chloride 0.9% 1,000 ML IV SCH (07:30)
[2023-01-15] MEDS: Sacubitril 24MG/Valsartan 26 MG TAB PO SCH (08:30)
[2023-01-15] MEDS: ALPRAZolam 0.5 MG TAB PO SCH (08:30)
[2023-01-15] MEDS: Carvedilol 3.125 MG TAB PO SCH (08:30)
[2023-01-15] MEDS ORDERED: Furosemide 20 MG TAB PO SCH ×2 (09:00)
[2023-01-15] MEDS ORDERED: Aspirin Chewable 81 MG TAB PO SCH (09:00)
[2023-01-15 11:35] VITALS: TEMP 98.4
== END 2023-01-15 09:30 | disposition home or self-care (01) | DRG 269 ==
LOC: SURG A 01-14 06:04 → CCU 01-14 14:49
PROVIDERS: ADMIT Thoracic Surgery (Cardiothoracic Vascular Surgery); ATTEND Thoracic Surgery (Cardiothoracic Vascular Surgery)
PROC: 04V03EZ Restriction of Abdominal Aorta with Branched or Fenestrated Intraluminal Device, One or Two Arteries, Percutaneous Approach (ICD-10-PCS; principal; 2023-01-14)
DX: I71.40 Abdominal aortic aneurysm, without rupture, unspecified (principal); I42.9 Cardiomyopathy, unspecified; G47.30 Sleep apnea, unspecified; J47.9 Bronchiectasis, uncomplicated; I10 Essential (primary) hypertension; Z95.810 Presence of automatic (implantable) cardiac defibrillator; Z79.899 Other long term (current) drug therapy; Z79.82 Long term (current) use of aspirin; Z88.1 Allergy status to other antibiotic agents
CPT/HCPCS: 36415; 80048; 85025; 85027; 86850; 86900; 86901; 93005; 93010; C1760; C1769; C1874; C1889; J1644; J2250; J2370; J2405; J2720; J3010; J3490; J7050; J7120; P9045

== ENCOUNTER 2023-05-19 12:12 | Outpatient (CLI) | payer MEDICARE | END 2023-05-19 12:13 | disposition home or self-care (01) | LOC: BICRAD 12:12 | PROVIDERS: ATTEND Family Medicine | DX: M19.90 Unspecified osteoarthritis, unspecified site (principal) ==

== ENCOUNTER 2024-01-22 09:25 | Outpatient (CLI) | payer MEDICARE | END 2024-01-22 09:26 | disposition home or self-care (01) | LOC: RAD 09:25 | PROVIDERS: ATTEND Internal Medicine Critical Care Medicine | DX: R06.00 Dyspnea, unspecified (principal) | CPT/HCPCS: 71046 ==

== ENCOUNTER 2024-05-26 12:14 | Day surgery (SDC) | payer MEDICARE ==
[2024-05-25 09:55] VITALS: BMI 23.6
[2024-05-26] MEDS ORDERED: Lidocaine 1% PF 5 ML VIAL ONE (13:42)
[2024-05-26] MEDS ORDERED: PROPOFOL 200 MG/20 ML VIAL ONE (13:42)
== END 2024-05-26 14:48 | disposition home or self-care (01) ==
LOC: SDC 12:14
PROVIDERS: ATTEND Internal Medicine Gastroenterology
PROC: 0DBE8ZX Excision of Large Intestine, Via Natural or Artificial Opening Endoscopic, Diagnostic (ICD-10-PCS; principal; 2024-05-26)
DX: K52.832 Lymphocytic colitis (principal); K57.30 Diverticulosis of large intestine without perforation or abscess without bleeding; I11.0 Hypertensive heart disease with heart failure; I50.9 Heart failure, unspecified; F41.9 Anxiety disorder, unspecified; F32.A Depression, unspecified; Z95.818 Presence of other cardiac implants and grafts; Z79.82 Long term (current) use of aspirin; Z79.899 Other long term (current) drug therapy; Z88.8 Allergy status to other drugs, medicaments and biological substances; Z87.891 Personal history of nicotine dependence
CPT/HCPCS: 45380; J2704; 88305

== ENCOUNTER 2024-08-02 01:46 | Emergency (ER) | payer MEDICARE ==
[2024-08-02 03:26] LABS: #Basophils 0.07 10x3/uL (0.0-0.2); %Basophils 0.6 % (0.0-1.0); %Eosinophils 1.3 % (0.0-10.0); %Lymphocytes 19.7 % (21.0-51.0); %Monocytes 5.2 % (0.0-10.0); %Neutrophils 72.8 % (42.0-75.0); Hematocrit 48.8 % (42.0-52.0); Hemoglobin 16.4 g/dL (14.0-18.0); Mean Corpuscular HGB CONC 33.6 g/dL (32.0-36.0); Mean Corpuscular Hemoglobin 32.9 pg (27.0-31.0); Mean Corpuscular Volume 97.8 fL (78.0-98.0); Mean Platelet Volume 8.9 fL (7.4-10.4); Platelet Count 184 10x3/uL (130-400); RBC Distribution Width 14.2 % (11.5-14.5); Red Blood Cell (RBC) Count 4.99 mill/uL (4.70-6.10)
[2024-08-02 03:40] LABS: ALT (SGPT) 40 U/L (8-55); AST (SGOT) 24 U/L (5-34); Albumin 3.6 g/dL (3.4-4.8); Alkaline Phosphatase 61 U/L (40-110); Anion Gap 15 mmol/L (10-20); BUN (Urea Nitrogen) 18 mg/dL (8.4-25.7); Bilirubin, Total 0.3 mg/dL (0.2-1.2); Calc. Creatinine Clearance 0 mL/min (70-130); Calcium 9.5 mg/dL (7.8-10.44); Carbon Dioxide 21 mmol/L (23-31); Chloride 113 mmol/L (98-107); Estimated GFR 84; Globulin 3.4 g/dL (2.4-3.5); Glucose 105 mg/dL (83-110); Potassium 4.3 mmol/L (3.5-5.1); Sodium 145 mmol/L (136-145)
[2024-08-02 03:45] LABS: Troponin I Less than 0.010 ng/mL (< 0.028)
== END 2024-08-02 04:43 | disposition home or self-care (01) ==
LOC: ERS 01:46
DX: I11.0 Hypertensive heart disease with heart failure (principal); I50.9 Heart failure, unspecified; J44.9 Chronic obstructive pulmonary disease, unspecified; E78.00 Pure hypercholesterolemia, unspecified; F17.290 Nicotine dependence, other tobacco product, uncomplicated; Z79.899 Other long term (current) drug therapy
CPT/HCPCS: 36415; 71045; 80053; 83880; 84484; 85025; 93005

== ENCOUNTER 2025-04-07 07:57 | Inpatient (IN) | payer MEDICARE ==
[2025-04-07 08:23] LABS: #Basophils 0.04 10x3/uL (0.0-0.2); #Eosinophils 0.11 10x3/uL (0.0-0.7); #Monocytes 1.01 10x3/uL (0.11-0.59); #Neutrophils 15.39 10x3/uL (1.40-6.50); %Basophils 0.2 % (0.0-1.0); %Eosinophils 0.6 % (0.0-10.0); %Lymphocytes 11.9 % (21.0-51.0); %Monocytes 5.4 % (0.0-10.0); %Neutrophils 81.5 % (42.0-75.0); Hematocrit 45.5 % (42.0-52.0); Hemoglobin 14.8 g/dL (14.0-18.0); Mean Corpuscular Hemoglobin 32.5 pg (27.0-31.0); Mean Corpuscular Volume 99.8 fL (78.0-98.0); Platelet Count 141 10x3/uL (130-400); Red Blood Cell (RBC) Count 4.56 mill/uL (4.70-6.10); White Blood Cell (WBC) Count 18.86 10x3/uL (4.8-10.8)
[2025-04-07 08:48] LABS: ALT (SGPT) 300 U/L (Less than 45); AST (SGOT) 1831 U/L (11-34); Albumin 3.2 g/dL (3.1-4.5); Alkaline Phosphatase 67 U/L (40-110); Anion Gap 20 mmol/L (10-20); BUN (Urea Nitrogen) 35 mg/dL (8.4-25.7); Bilirubin, Total 0.7 mg/dL (0.3-1.2); Calc. Creatinine Clearance 0 mL/min (70-130); Calcium 9.0 mg/dL (7.8-10.44); Carbon Dioxide 17 mmol/L (23-31); Chloride 111 mmol/L (98-107); Globulin 2.8 g/dL (2.4-3.5); Glucose 92 mg/dL (83-110); Lipase 27 U/L (8-78); Magnesium 2.6 mg/dL (1.6-2.6); Potassium 4.4 mmol/L (3.5-5.1); Sodium 144 mmol/L (136-145)
[2025-04-07] MEDS ORDERED: cefTRIAXone (ROCEPHIN) 1 GM VIAL ONE (09:29)
[2025-04-07] MEDS ORDERED: Magnesium 2 GM/50 ML BAG (IN WATER) ONE (09:29)
[2025-04-07 09:33] LABS: CK (CPK) Greater than 42670 U/L (30-200)
[2025-04-07] MEDS ORDERED: Melatonin 3 MG TAB PO PRN (10:25)
[2025-04-07] MEDS ORDERED: Acetaminophen/Codeine 30-300mg Tablet PO PRN (10:25)
[2025-04-07] MEDS ORDERED: Ondansetron PF 4 MG/2 ML Vial IVP PRN (10:25)
[2025-04-07] MEDS ORDERED: Guaifenesin DM 100-10/5 ML UDCUP PO PRN (10:25)
[2025-04-07] MEDS ORDERED: Calcium Carbonate 500 MG ChewTAB PO PRN (10:25)
[2025-04-07] MEDS ORDERED: Electrolyte Replacement Protocol 1 EACH FS PRN (10:30)
[2025-04-07 11:07] LABS: Bacteria/HPF None Seen HPF (None Seen); CAUTI Indications for Culture Dysuria,urgency,freq; Glucose, Urine (Dipstick) 50 mg/dL (Negative); Leukocyte Negative Leu/uL (Negative); Protein, Urine (Dipstick) 200 mg/dL (Neg-Trace); Specific Gravity, Urine 1.027 (1.002-1.036)
[2025-04-07 11:20] LABS: Analyzer IN Cardio ER; Base Excess (BEa) -9.2 mEq/L (-2.0 to +3.0); CO2 Tension 25.9 mmHg (35.0-45.0); Calcium, Ionized (arterial) 1.16 mmol/L (1.12-1.30); Hematocrit-ABG 46 % (42.0-52.0); Hemoglobin (Hb) 15.6 g/dL (14.0-18.0); O2 Tension (PaO2), arterial 64.3 mmHg (> 70.0); Potassium - ABG Lab 4.14 mmol/L (3.70-5.30); pH, Arterial 7.358 (7.35-7.45)
[2025-04-07 11:22] LABS: Actual Bicarbonate (HCO3a) 14.2 mEq/L (22-28); Puncture Site Right Radial artery
[2025-04-07 11:23] LABS: Sperm/HPF 1+ HPF (None Seen); Urine Culture Reflex No No
[2025-04-07 12:45] LABS: Anion Gap 18 mmol/L (10-20); BUN (Urea Nitrogen) 39 mg/dL (8.4-25.7); Calc. Creatinine Clearance 0 mL/min (70-130); Calcium 8.8 mg/dL (7.8-10.44); Carbon Dioxide 16 mmol/L (23-31); Chloride 112 mmol/L (98-107); Glucose 94 mg/dL (83-110); Potassium 4.5 mmol/L (3.5-5.1); Sodium 141 mmol/L (136-145)
[2025-04-07] MEDS ORDERED: Heparin 5,000 UNITS/ML VIAL ONE (15:58)
[2025-04-07] MEDS: Heparin 5,000 UNITS/ML VIAL SC SCH (16:01)
[2025-04-07 17:42] VITALS: BMI 22.9
[2025-04-07] MEDS: ALPRAZolam 0.5 MG TAB PO PRN (17:57)
[2025-04-07 19:20] LABS: ALT (SGPT) 555 U/L (Less than 45); AST (SGOT) 2796 U/L (11-34); Albumin 3.1 g/dL (3.1-4.5); Alkaline Phosphatase 68 U/L (40-110); Anion Gap 20 mmol/L (10-20); BUN (Urea Nitrogen) 48 mg/dL (8.4-25.7); Bilirubin, Total 0.7 mg/dL (0.3-1.2); Calc. Creatinine Clearance 14 mL/min (70-130); Calcium 8.8 mg/dL (7.8-10.44); Carbon Dioxide 18 mmol/L (23-31); Chloride 109 mmol/L (98-107); Globulin 2.9 g/dL (2.4-3.5); Glucose 123 mg/dL (83-110); Potassium 4.9 mmol/L (3.5-5.1); Sodium 142 mmol/L (136-145)
[2025-04-07] MEDS: Mupirocin 1 GM TUBE NASAL DECOLONIZATION NASAL SCH (20:17)
[2025-04-08 04:18] LABS: Hematocrit 44.3 % (42.0-52.0); Hemoglobin 14.5 g/dL (14.0-18.0); Mean Corpuscular Hemoglobin 32.9 pg (27.0-31.0); Mean Corpuscular Volume 100.5 fL (78.0-98.0); Platelet Count 120 10x3/uL (130-400); Red Blood Cell (RBC) Count 4.41 mill/uL (4.70-6.10); White Blood Cell (WBC) Count 18.39 10x3/uL (4.8-10.8)
[2025-04-08 04:27] LABS: ALT (SGPT) 593 U/L (Less than 45); AST (SGOT) 2050 U/L (11-34); Albumin 2.6 g/dL (3.1-4.5); Alkaline Phosphatase 60 U/L (40-110); Anion Gap 20 mmol/L (10-20); BUN (Urea Nitrogen) 52 mg/dL (8.4-25.7); Bilirubin, Total 0.6 mg/dL (0.3-1.2); Calc. Creatinine Clearance 12 mL/min (70-130); Calcium 8.2 mg/dL (7.8-10.44); Carbon Dioxide 21 mmol/L (23-31); Chloride 104 mmol/L (98-107); Globulin 2.6 g/dL (2.4-3.5); Glucose 162 mg/dL (83-110); Potassium 5.3 mmol/L (3.5-5.1); Sodium 140 mmol/L (136-145)
[2025-04-08 05:03] LABS: Burr Cells MODERATE= 6-15 cells HPF (0-1); Macrocytosis SLIGHT = 6-15 cells HPF (0-5); Platelet Adequacy Comment Platelets Decreased; Poikilocytosis SLIGHT = 6-15 cells HPF (0-5); Polychromasia SLIGHT = 2-3 cells HPF (0-2); Smudge Cells 1.9 %
[2025-04-08] MEDS: Pantoprazole 40 MG VIAL IVP SCH (08:56)
[2025-04-08] MEDS ORDERED: Heparin 10,000 UNITS/ 10 ML VIAL ONE (11:06)
[2025-04-08 11:51] LABS: Anion Gap 19 mmol/L (10-20); BUN (Urea Nitrogen) 59 mg/dL (8.4-25.7); Calc. Creatinine Clearance 13 mL/min (70-130); Calcium 7.7 mg/dL (7.8-10.44); Carbon Dioxide 20 mmol/L (23-31); Chloride 103 mmol/L (98-107); Glucose 122 mg/dL (83-110); Potassium 5.4 mmol/L (3.5-5.1); Sodium 137 mmol/L (136-145)
[2025-04-08 12:22] LABS: HBSAB Concentration Less than 8.00 mIU/mL; Hep B Core Total Ab NONREACTIVE (NonReactive); Hep B Core Total Index 0.05 S/CO (0-0.79); Hep B Surf Ag NONREACTIVE S/CO (NonReactive); Hep C IgG Ab NONREACTIVE S/CO (NonReactive); Hep C Index 0.05 S/CO (0-0.79)
[2025-04-08] MEDS ORDERED: CEFAZOLIN 2 GM VIAL ONE (14:58)
[2025-04-08] MEDS ORDERED: Bupivacaine 0.25% HCL 30 ML VIAL ONE (14:58)
[2025-04-08] MEDS ORDERED: PROPOFOL 20 ML ONE (14:59)
[2025-04-08] MEDS ORDERED: Ondansetron PF 4 MG/2 ML Vial ONE (15:00)
[2025-04-08] MEDS ORDERED: Etomidate 40 MG (20 mL) VIAL ONE (15:00)
[2025-04-08] MEDS ORDERED: Lidocaine 1% PF 5 ML VIAL ONE (15:00)
[2025-04-08] MEDS ORDERED: Rocuronium Bromide 10 MG/ML (10ML VIAL) ONE (15:02)
[2025-04-08] MEDS ORDERED: Glycopyrrolate 0.2 MG/ML 5 ML SYRINGE ONE (15:18)
[2025-04-08] MEDS ORDERED: Ketamine In 0.9 % NaCl 50 MG/5 ML SYRINGE ONE (15:18)
[2025-04-08] MEDS ORDERED: Ventilator Sedation Protocol 1 EACH FS SCH (17:15)
[2025-04-08] MEDS ORDERED: Fentanyl BOLUS 100 ML IVPB PRN (17:30)
[2025-04-08] MEDS ORDERED: Propofol BOLUS 1,000 MG/100 ML VIAL IV PRN (17:30)
[2025-04-08] MEDS ORDERED: DISCONTINUE PREVIOUS NARCOTIC PAIN MEDICATIONS AND BENZODIAZEPINES FS SCH (17:30)
[2025-04-08 17:40] LABS: Actual Bicarbonate (HCO3a) 20.6 mEq/L (22-28); Base Excess (BEa) -4.7 mEq/L (-2.0 to +3.0); CO2 Tension 38.8 mmHg (35.0-45.0); Calcium, Ionized (arterial) 1.03 mmol/L (1.12-1.30); Hematocrit-ABG 41 % (42.0-52.0); Hemoglobin (Hb) 14.1 g/dL (14.0-18.0); O2 Tension (PaO2), arterial 87.7 mmHg (> 70.0); Potassium - ABG Lab 4.54 mmol/L (3.70-5.30); pH, Arterial 7.342 (7.35-7.45)
[2025-04-08 17:41] LABS: ALV-art Gradient 149.000 mmHg (0-20); Puncture Site Right Radial artery
[2025-04-08 18:04] LABS: Hematocrit 39.4 % (42.0-52.0); Hemoglobin 12.9 g/dL (14.0-18.0); Mean Corpuscular Hemoglobin 33.0 pg (27.0-31.0); Mean Corpuscular Volume 100.8 fL (78.0-98.0); Platelet Count 104 10x3/uL (130-400); Red Blood Cell (RBC) Count 3.91 mill/uL (4.70-6.10); White Blood Cell (WBC) Count 13.80 10x3/uL (4.8-10.8)
[2025-04-08 18:17] LABS: ALT (SGPT) 782 U/L (Less than 45); AST (SGOT) 1577 U/L (11-34); Albumin 2.1 g/dL (3.1-4.5); Alkaline Phosphatase 52 U/L (40-110); Anion Gap 16 mmol/L (10-20); BUN (Urea Nitrogen) 40 mg/dL (8.4-25.7); Bilirubin, Total 1.0 mg/dL (0.3-1.2); Calc. Creatinine Clearance 16 mL/min (70-130); Calcium 7.3 mg/dL (7.8-10.44); Carbon Dioxide 23 mmol/L (23-31); Chloride 104 mmol/L (98-107); Globulin 2.4 g/dL (2.4-3.5); Glucose 99 mg/dL (83-110); Magnesium 2.5 mg/dL (1.6-2.6); Potassium 5.3 mmol/L (3.5-5.1); Sodium 138 mmol/L (136-145)
[2025-04-08 18:26] LABS: Anisocytosis SLIGHT = 6-15 cells HPF (0-5); Macrocytosis SLIGHT = 6-15 cells HPF (0-5); Platelet Adequacy Comment Platelets Decreased; Poikilocytosis SLIGHT = 6-15 cells HPF (0-5); Polychromasia SLIGHT = 2-3 cells HPF (0-2)
[2025-04-08] MEDS: Albumin 5% 12.5 GM (250 mL) BOT IVPB SCH (18:37)
[2025-04-08 20:33] LABS: Anion Gap 17 mmol/L (10-20); BUN (Urea Nitrogen) 44 mg/dL (8.4-25.7); Calc. Creatinine Clearance 16 mL/min (70-130); Calcium 7.3 mg/dL (7.8-10.44); Carbon Dioxide 22 mmol/L (23-31); Chloride 104 mmol/L (98-107); Glucose 100 mg/dL (83-110); Potassium 5.1 mmol/L (3.5-5.1); Sodium 138 mmol/L (136-145)
[2025-04-08] MEDS: Vancomycin 1.25 GM / NS 250 ML VIAL-2-BAG IVPB SCH (21:40)
[2025-04-08] MEDS: Albumin 5% 25 GM (500 mL) BOT IVPB SCH (22:21)
[2025-04-09] MEDS ORDERED: Phenylephrine 40 MG/NS 250 ML 250 ML IVPB SCH (01:30)
[2025-04-09] MEDS: Albumin 5% 12.5 GM (250 mL) BOT IVPB SCH (01:39)
[2025-04-09] MEDS: NOREPINEPHRINE 8 MG/250 ML-D5W 250 ML IVPB SCH (02:13)
[2025-04-09 04:21] LABS: Hematocrit 33.9 % (42.0-52.0); Hemoglobin 11.0 g/dL (14.0-18.0); Mean Corpuscular Hemoglobin 33.0 pg (27.0-31.0); Mean Corpuscular Volume 101.8 fL (78.0-98.0); Platelet Count 93 10x3/uL (130-400); Red Blood Cell (RBC) Count 3.33 mill/uL (4.70-6.10); White Blood Cell (WBC) Count 12.78 10x3/uL (4.8-10.8)
[2025-04-09 04:28] LABS: Vancomycin, Random 23.9 ug/mL (See Comment)
[2025-04-09 04:59] LABS: Burr Cells MODERATE= 6-15 cells HPF (0-1); Platelet Adequacy Comment Platelets Decreased
[2025-04-09 06:25] LABS: CK (CPK) 22058 U/L (30-200)
[2025-04-09 06:49] LABS: ALT (SGPT) 705 U/L (Less than 45); AST (SGOT) 973 U/L (11-34); Albumin 2.5 g/dL (3.1-4.5); Alkaline Phosphatase 34 U/L (40-110); Anion Gap 17 mmol/L (10-20); BUN (Urea Nitrogen) 49 mg/dL (8.4-25.7); Bilirubin, Total 0.7 mg/dL (0.3-1.2); Calc. Creatinine Clearance 15 mL/min (70-130); Calcium 7.0 mg/dL (7.8-10.44); Carbon Dioxide 20 mmol/L (23-31); Chloride 103 mmol/L (98-107); Globulin 2.2 g/dL (2.4-3.5); Glucose 108 mg/dL (83-110); Potassium 5.2 mmol/L (3.5-5.1); Sodium 135 mmol/L (136-145)
[2025-04-09] MEDS ORDERED: Heparin 10,000 UNITS/ 10 ML VIAL ONE (10:37)
[2025-04-09] MEDS ORDERED: Vancomycin Dose by Levels Sliding Scale (Wt <71) FS SCH (10:45)
[2025-04-09] MEDS: Albumin 25% 25 GM (100 mL) BOT IVPB PRN (14:36)
[2025-04-09] MEDS ORDERED: Vancomycin HCl 500 MG in NaCl 0.9% 100 ML IV SCH (21:00)
[2025-04-10 05:20] LABS: Anion Gap 14 mmol/L (10-20); BUN (Urea Nitrogen) 36 mg/dL (8.4-25.7); Calc. Creatinine Clearance 19 mL/min (70-130); Calcium 6.5 mg/dL (7.8-10.44); Carbon Dioxide 22 mmol/L (23-31); Chloride 101 mmol/L (98-107); Glucose 105 mg/dL (83-110); Potassium 4.7 mmol/L (3.5-5.1); Sodium 132 mmol/L (136-145)
[2025-04-10 05:31] LABS: CK (CPK) 8070 U/L (30-200)
[2025-04-10 06:08] LABS: #Basophils Less than 0.03 10x3/uL (0.0-0.2); #Eosinophils Less than 0.03 10x3/uL (0.0-0.7); #Monocytes 0.54 10x3/uL (0.11-0.59); #Neutrophils 12.93 10x3/uL (1.40-6.50); %Basophils 0.1 % (0.0-1.0); %Eosinophils 0.0 % (0.0-10.0); %Lymphocytes 5.4 % (21.0-51.0); %Monocytes 3.8 % (0.0-10.0); %Neutrophils 90.4 % (42.0-75.0); Hematocrit 20.9 % (42.0-52.0); Hemoglobin 7.0 g/dL (14.0-18.0); Mean Corpuscular Hemoglobin 33.3 pg (27.0-31.0); Mean Corpuscular Volume 99.5 fL (78.0-98.0); Platelet Count 88 10x3/uL (130-400); Red Blood Cell (RBC) Count 2.10 mill/uL (4.70-6.10); White Blood Cell (WBC) Count 14.30 10x3/uL (4.8-10.8)
[2025-04-10 07:08] LABS: INR-International Normal Ratio 1.1; Prothrombin Time 14.8 sec (12.0-14.7)
[2025-04-10 07:09] LABS: PTT 36.3 sec (22.9-36.1)
[2025-04-10] MEDS ORDERED: PROPOFOL 40 ML ONE (07:47)
[2025-04-10] MEDS ORDERED: Rocuronium Bromide 10 MG/ML (10ML VIAL) ONE (07:47)
[2025-04-10] MEDS ORDERED: fentaNYL PF 100 MCG/2 ML SYRINGE ONE (07:47)
[2025-04-10] MEDS ORDERED: PHENYLEPHRINE-NS 100 MCG/ML 10 ML SYRINGE ONE (07:47)
[2025-04-10] MEDS ORDERED: Sodium Bicarb 50 MEQ/50 ML Abboject 8.4% SYRINGE ONE (11:09)
[2025-04-10 13:45] LABS: Hematocrit 22.8 % (42.0-52.0); Hemoglobin 7.7 g/dL (14.0-18.0); Mean Corpuscular Hemoglobin 31.7 pg (27.0-31.0); Mean Corpuscular Volume 93.8 fL (78.0-98.0); Platelet Count 107 10x3/uL (130-400); Red Blood Cell (RBC) Count 2.43 mill/uL (4.70-6.10); White Blood Cell (WBC) Count 14.51 10x3/uL (4.8-10.8)
[2025-04-10 13:56] LABS: Anion Gap 16 mmol/L (10-20); BUN (Urea Nitrogen) 43 mg/dL (8.4-25.7); Calc. Creatinine Clearance 18 mL/min (70-130); Calcium 7.3 mg/dL (7.8-10.44); Carbon Dioxide 20 mmol/L (23-31); Chloride 105 mmol/L (98-107); Glucose 114 mg/dL (83-110); Magnesium 2.0 mg/dL (1.6-2.6); Potassium 4.8 mmol/L (3.5-5.1); Sodium 136 mmol/L (136-145)
[2025-04-10 14:11] LABS: Anisocytosis SLIGHT = 6-15 cells HPF (0-5); Nucleated RBC (Manual Ct) 2 % (0); Platelet Adequacy Comment Platelets Decreased; Poikilocytosis SLIGHT = 6-15 cells HPF (0-5); Polychromasia SLIGHT = 2-3 cells HPF (0-2)
[2025-04-10 23:08] LABS: Hematocrit 22.0 % (42.0-52.0); Hemoglobin 7.5 g/dL (14.0-18.0); Platelet Count 84 10x3/uL (130-400)
[2025-04-11 05:17] LABS: Hematocrit 21.8 % (42.0-52.0); Hemoglobin 7.4 g/dL (14.0-18.0); Mean Corpuscular Hemoglobin 30.3 pg (27.0-31.0); Mean Corpuscular Volume 89.3 fL (78.0-98.0); Platelet Count 80 10x3/uL (130-400); Red Blood Cell (RBC) Count 2.44 mill/uL (4.70-6.10); White Blood Cell (WBC) Count 15.51 10x3/uL (4.8-10.8)
[2025-04-11 05:41] LABS: ALT (SGPT) 360 U/L (Less than 45); AST (SGOT) 282 U/L (11-34); Albumin 2.2 g/dL (3.1-4.5); Alkaline Phosphatase 41 U/L (40-110); Anion Gap 13 mmol/L (10-20); BUN (Urea Nitrogen) 52 mg/dL (8.4-25.7); Bilirubin, Total 0.7 mg/dL (0.3-1.2); CK (CPK) 3232 U/L (30-200); Calc. Creatinine Clearance 16 mL/min (70-130); Calcium 6.7 mg/dL (7.8-10.44); Carbon Dioxide 21 mmol/L (23-31); Chloride 102 mmol/L (98-107); Globulin 1.7 g/dL (2.4-3.5); Glucose 85 mg/dL (83-110); Potassium 4.9 mmol/L (3.5-5.1); Sodium 131 mmol/L (136-145)
[2025-04-11 05:46] LABS: Burr Cells SLIGHT = 2-5 cells HPF (0-1); Nucleated RBC (Manual Ct) 8 % (0); Platelet Adequacy Comment Platelets Decreased
[2025-04-11] MEDS: CALCIUM GLUC 1 GM/NS 50 ML 1 GM in Premix 1 BAG IVPB SCH (06:41)
[2025-04-11] MEDS: EPOETIN ALFA-EPBX (ESRD) 10,000 UNITS/ML VIAL SC SCH (10:02)
[2025-04-11 16:20] LABS: Anion Gap 15 mmol/L (10-20); BUN (Urea Nitrogen) 58 mg/dL (8.4-25.7); Calc. Creatinine Clearance 14 mL/min (70-130); Calcium 6.6 mg/dL (7.8-10.44); Carbon Dioxide 19 mmol/L (23-31); Chloride 103 mmol/L (98-107); Glucose 73 mg/dL (83-110); Potassium 4.5 mmol/L (3.5-5.1); Sodium 132 mmol/L (136-145)
[2025-04-11] MEDS: Albumin 25% 25 GM (100 mL) BOT IVPB SCH (17:04)
[2025-04-12 03:39] LABS: Hematocrit 19.0 % (42.0-52.0); Hemoglobin 6.3 g/dL (14.0-18.0); Mean Corpuscular Hemoglobin 30.6 pg (27.0-31.0); Mean Corpuscular Volume 92.2 fL (78.0-98.0); Platelet Count 75 10x3/uL (130-400); Red Blood Cell (RBC) Count 2.06 mill/uL (4.70-6.10); White Blood Cell (WBC) Count 17.11 10x3/uL (4.8-10.8)
[2025-04-12 04:39] LABS: ALT (SGPT) 301 U/L (Less than 45); AST (SGOT) 257 U/L (11-34); Albumin 2.1 g/dL (3.1-4.5); Alkaline Phosphatase 45 U/L (40-110); Anion Gap 16 mmol/L (10-20); BUN (Urea Nitrogen) 64 mg/dL (8.4-25.7); Bilirubin, Total 0.6 mg/dL (0.3-1.2); Calc. Creatinine Clearance 13 mL/min (70-130); Calcium 6.8 mg/dL (7.8-10.44); Carbon Dioxide 16 mmol/L (23-31); Chloride 104 mmol/L (98-107); Globulin 1.8 g/dL (2.4-3.5); Glucose 69 mg/dL (83-110); Potassium 4.4 mmol/L (3.5-5.1); Sodium 132 mmol/L (136-145)
[2025-04-12 05:28] LABS: Nucleated RBC (Manual Ct) 2 % (0); Platelet Adequacy Comment Platelets Decreased; Polychromasia SLIGHT = 2-3 cells HPF (0-2); Smudge Cells 1.0 %
[2025-04-12] MEDS: Acetaminophen 325 MG TAB PO PRN (07:52)
[2025-04-12] MEDS: Albumin 25% 25 GM (100 mL) BOT IVPB SCH (09:54)
[2025-04-12 13:05] LABS: Hematocrit 21.2 % (42.0-52.0); Hemoglobin 7.5 g/dL (14.0-18.0)
[2025-04-13 03:36] LABS: Hematocrit 22.3 % (42.0-52.0); Hemoglobin 7.6 g/dL (14.0-18.0); Mean Corpuscular Hemoglobin 31.1 pg (27.0-31.0); Mean Corpuscular Volume 91.4 fL (78.0-98.0); Platelet Count 104 10x3/uL (130-400); Red Blood Cell (RBC) Count 2.44 mill/uL (4.70-6.10); White Blood Cell (WBC) Count 17.80 10x3/uL (4.8-10.8)
[2025-04-13 03:49] LABS: ALT (SGPT) 246 U/L (Less than 45); AST (SGOT) 197 U/L (11-34); Albumin 2.3 g/dL (3.1-4.5); Alkaline Phosphatase 48 U/L (40-110); Anion Gap 16 mmol/L (10-20); BUN (Urea Nitrogen) 39 mg/dL (8.4-25.7); Bilirubin, Total 0.9 mg/dL (0.3-1.2); Calc. Creatinine Clearance 19 mL/min (70-130); Calcium 8.0 mg/dL (7.8-10.44); Carbon Dioxide 20 mmol/L (23-31); Chloride 104 mmol/L (98-107); Globulin 2.0 g/dL (2.4-3.5); Glucose 75 mg/dL (83-110); Potassium 3.6 mmol/L (3.5-5.1); Sodium 136 mmol/L (136-145)
[2025-04-13 03:55] LABS: Anisocytosis SLIGHT = 6-15 cells HPF (0-5); Giant Platelets 1.0 % (0-5); Nucleated RBC (Manual Ct) 1 % (0); Platelet Adequacy Comment Platelets Normal; Polychromasia SLIGHT = 2-3 cells HPF (0-2); Smudge Cells 4.0 %
[2025-04-13] MEDS: Heparin 5,000 UNITS/ML VIAL SC SCH ×3 (10:16→14:02)
[2025-04-13] MEDS ORDERED: GASTROGRAFIN 30 ML BOT ONE (15:32)
[2025-04-13] MEDS: Budesonide DR 3 MG CAP PO SCH (17:33)
[2025-04-13] MEDS ORDERED: NEOMYCIN-POLYMYXIN-HC EAR SUSP 200 DROP/10 ML BOT EA EAR SCH (21:00)
[2025-04-14 05:04] LABS: Hematocrit 22.8 % (42.0-52.0); Hemoglobin 7.6 g/dL (14.0-18.0); Mean Corpuscular Hemoglobin 31.7 pg (27.0-31.0); Mean Corpuscular Volume 95.0 fL (78.0-98.0); Platelet Count 164 10x3/uL (130-400); Red Blood Cell (RBC) Count 2.40 mill/uL (4.70-6.10); White Blood Cell (WBC) Count 22.06 10x3/uL (4.8-10.8)
[2025-04-14 05:10] LABS: ALT (SGPT) 195 U/L (Less than 45); AST (SGOT) 134 U/L (11-34); Albumin 2.1 g/dL (3.1-4.5); Alkaline Phosphatase 52 U/L (40-110); Anion Gap 20 mmol/L (10-20); BUN (Urea Nitrogen) 58 mg/dL (8.4-25.7); Bilirubin, Total 0.7 mg/dL (0.3-1.2); Calc. Creatinine Clearance 14 mL/min (70-130); Calcium 7.8 mg/dL (7.8-10.44); Carbon Dioxide 18 mmol/L (23-31); Chloride 108 mmol/L (98-107); Globulin 2.0 g/dL (2.4-3.5); Glucose 77 mg/dL (83-110); Potassium 3.7 mmol/L (3.5-5.1); Sodium 142 mmol/L (136-145)
[2025-04-14 05:55] LABS: Anisocytosis SLIGHT = 6-15 cells HPF (0-5); Burr Cells SLIGHT = 2-5 cells HPF (0-1); Nucleated RBC (Manual Ct) 1 % (0); Platelet Adequacy Comment Platelets Normal; Poikilocytosis SLIGHT = 6-15 cells HPF (0-5); Polychromasia SLIGHT = 2-3 cells HPF (0-2); Schistocytes SLIGHT = 2-5 cells HPF (0-1)
[2025-04-14 14:36] VITALS: BMI 26.9
[2025-04-14] MEDS ORDERED: HYDROcodone/Acetaminophen 5/325 mg Tablet PO PRN (17:26)
[2025-04-14] MEDS ORDERED: HYDROcodone/Acetaminophen 10/325 mg Tablet PO PRN (17:26)
[2025-04-14] MEDS: Senokot S 8.6-50 MG TAB PO SCH (21:15)
[2025-04-15 05:47] LABS: Hematocrit 26.0 % (42.0-52.0); Hemoglobin 8.1 g/dL (14.0-18.0); Mean Corpuscular Hemoglobin 31.4 pg (27.0-31.0); Mean Corpuscular Volume 100.8 fL (78.0-98.0); Platelet Count 200 10x3/uL (130-400); Red Blood Cell (RBC) Count 2.58 mill/uL (4.70-6.10); White Blood Cell (WBC) Count 18.57 10x3/uL (4.8-10.8)
[2025-04-15 05:57] LABS: Anion Gap 19 mmol/L (10-20); BUN (Urea Nitrogen) 65 mg/dL (8.4-25.7); CK (CPK) 314 U/L (30-200); Calc. Creatinine Clearance 12 mL/min (70-130); Calcium 7.7 mg/dL (7.8-10.44); Carbon Dioxide 18 mmol/L (23-31); Chloride 110 mmol/L (98-107); Glucose 102 mg/dL (83-110); Potassium 4.1 mmol/L (3.5-5.1); Sodium 143 mmol/L (136-145)
[2025-04-15 06:35] LABS: Macrocytosis SLIGHT = 6-15 cells HPF (0-5); Nucleated RBC (Manual Ct) 4 % (0); Platelet Adequacy Comment Platelets Normal; Smudge Cells 3.8 %
[2025-04-15] MEDS ORDERED: Albumin 25% 25 GM (100 mL) BOT IVPB SCH (10:15)
[2025-04-15] MEDS: Heparin 10,000 UNITS/ 10 ML VIAL FS SCH (17:27)
[2025-04-16 04:35] LABS: #Basophils 0.03 10x3/uL (0.0-0.2); #Eosinophils 0.51 10x3/uL (0.0-0.7); #Monocytes 1.72 10x3/uL (0.11-0.59); #Neutrophils 12.92 10x3/uL (1.40-6.50); %Basophils 0.2 % (0.0-1.0); %Eosinophils 3.0 % (0.0-10.0); %Lymphocytes 9.0 % (21.0-51.0); %Monocytes 10.1 % (0.0-10.0); %Neutrophils 75.4 % (42.0-75.0); Hematocrit 24.4 % (42.0-52.0); Hemoglobin 8.2 g/dL (14.0-18.0); Mean Corpuscular Hemoglobin 31.5 pg (27.0-31.0); Mean Corpuscular Volume 93.8 fL (78.0-98.0); Platelet Count 247 10x3/uL (130-400); Red Blood Cell (RBC) Count 2.60 mill/uL (4.70-6.10); White Blood Cell (WBC) Count 17.11 10x3/uL (4.8-10.8)
[2025-04-16 05:03] LABS: Anion Gap 15 mmol/L (10-20); BUN (Urea Nitrogen) 46 mg/dL (8.4-25.7); Calc. Creatinine Clearance 17 mL/min (70-130); Calcium 8.0 mg/dL (7.8-10.44); Carbon Dioxide 24 mmol/L (23-31); Chloride 104 mmol/L (98-107); Glucose 81 mg/dL (83-110); Potassium 3.6 mmol/L (3.5-5.1); Sodium 139 mmol/L (136-145)
[2025-04-16] MEDS ORDERED: ALPRAZolam 0.5 MG TAB PO SCH (17:00)
[2025-04-16] MEDS: Aspirin 81 mg Enteric Coated Tablet PO SCH (20:48)
[2025-04-16] MEDS: Carvedilol 6.25 MG TAB PO SCH (20:49)
[2025-04-16] MEDS: Acetaminophen 500 MG TAB PO SCH (20:52)
[2025-04-16] MEDS: Sacubitril 49 MG/Valsartan 51 MG TABLET PO SCH (20:53)
[2025-04-17 05:33] LABS: #Basophils 0.06 10x3/uL (0.0-0.2); #Eosinophils 0.25 10x3/uL (0.0-0.7); #Monocytes 1.84 10x3/uL (0.11-0.59); #Neutrophils 13.07 10x3/uL (1.40-6.50); %Basophils 0.3 % (0.0-1.0); %Eosinophils 1.4 % (0.0-10.0); %Lymphocytes 10.7 % (21.0-51.0); %Monocytes 10.7 % (0.0-10.0); %Neutrophils 75.7 % (42.0-75.0); Hematocrit 25.7 % (42.0-52.0); Hemoglobin 8.3 g/dL (14.0-18.0); Mean Corpuscular Hemoglobin 31.3 pg (27.0-31.0); Mean Corpuscular Volume 97.0 fL (78.0-98.0); Platelet Count 302 10x3/uL (130-400); Red Blood Cell (RBC) Count 2.65 mill/uL (4.70-6.10); White Blood Cell (WBC) Count 17.27 10x3/uL (4.8-10.8)
[2025-04-17 05:45] LABS: Anion Gap 18 mmol/L (10-20); BUN (Urea Nitrogen) 61 mg/dL (8.4-25.7); Calc. Creatinine Clearance 13 mL/min (70-130); Calcium 8.1 mg/dL (7.8-10.44); Carbon Dioxide 22 mmol/L (23-31); Chloride 106 mmol/L (98-107); Glucose 86 mg/dL (83-110); Potassium 3.6 mmol/L (3.5-5.1); Sodium 142 mmol/L (136-145)
[2025-04-17] MEDS: Rosuvastatin 10 MG TAB PO SCH (08:32)
[2025-04-17] MEDS: ALPRAZolam 0.5 MG TAB PO PRN (08:55)
[2025-04-17] MEDS ORDERED: Mening Vac A,C,Y,W-135 Dip/PF (MENVEO) IM ONE (14:45)
[2025-04-17] MEDS: PNEUMOC 20-VAL CONJ-DIP CRM/PF 0.5 ML SYRINGE IM ONE (19:06)
[2025-04-17] MEDS: Mening Vac A,C,Y,W-135 Dip/PF (MENVEO) IM ONE (19:31)
[2025-04-18 05:32] LABS: #Basophils 0.06 10x3/uL (0.0-0.2); #Eosinophils 0.46 10x3/uL (0.0-0.7); #Monocytes 1.45 10x3/uL (0.11-0.59); #Neutrophils 12.20 10x3/uL (1.40-6.50); %Basophils 0.4 % (0.0-1.0); %Eosinophils 2.8 % (0.0-10.0); %Lymphocytes 11.8 % (21.0-51.0); %Monocytes 9.0 % (0.0-10.0); %Neutrophils 75.3 % (42.0-75.0); Hematocrit 23.6 % (42.0-52.0); Hemoglobin 7.6 g/dL (14.0-18.0); Mean Corpuscular Hemoglobin 31.0 pg (27.0-31.0); Mean Corpuscular Volume 96.3 fL (78.0-98.0); Platelet Count 339 10x3/uL (130-400); Red Blood Cell (RBC) Count 2.45 mill/uL (4.70-6.10); White Blood Cell (WBC) Count 16.20 10x3/uL (4.8-10.8)
[2025-04-18 05:46] LABS: ALT (SGPT) 90 U/L (Less than 45); AST (SGOT) 44 U/L (11-34); Albumin 1.8 g/dL (3.1-4.5); Alkaline Phosphatase 43 U/L (40-110); Bilirubin, Direct 0.2 mg/dL (0.1-0.3); Bilirubin, Total 0.3 mg/dL (0.3-1.2)
[2025-04-18 05:49] LABS: Anion Gap 18 mmol/L (10-20); BUN (Urea Nitrogen) 68 mg/dL (8.4-25.7); Calc. Creatinine Clearance 12 mL/min (70-130); Calcium 7.9 mg/dL (7.8-10.44); Carbon Dioxide 21 mmol/L (23-31); Chloride 106 mmol/L (98-107); Glucose 94 mg/dL (83-110); Potassium 3.4 mmol/L (3.5-5.1); Sodium 142 mmol/L (136-145)
[2025-04-18] MEDS ORDERED: FLU (Fluad Triv) 25-26 (65UP)PF 45 MCG/0.5 ML Syringe IM ONE (09:00)
[2025-04-18 10:01] LABS: Hematocrit 24.7 % (42.0-52.0)
[2025-04-18] MEDS ORDERED: Iopamidol-370 76% 500 ML MDV (1 ML CHARGE) ONE (11:05)
[2025-04-18] MEDS: FLU (Fluad Triv) 25-26 (65UP)PF 45 MCG/0.5 ML Syringe IM ONE (14:33)
[2025-04-18] MEDS: Albumin 25% 25 GM (100 mL) BOT IVPB SCH (14:49)
[2025-04-18 16:02] LABS: Hematocrit 21.3 % (42.0-52.0); Hemoglobin 7.2 g/dL (14.0-18.0)
[2025-04-18 20:15] LABS: #Basophils 0.04 10x3/uL (0.0-0.2); #Eosinophils 0.28 10x3/uL (0.0-0.7); #Monocytes 1.37 10x3/uL (0.11-0.59); #Neutrophils 11.76 10x3/uL (1.40-6.50); %Basophils 0.3 % (0.0-1.0); %Eosinophils 1.8 % (0.0-10.0); %Lymphocytes 15.2 % (21.0-51.0); %Monocytes 8.6 % (0.0-10.0); %Neutrophils 73.3 % (42.0-75.0); Hematocrit 21.2 % (42.0-52.0); Hemoglobin 7.1 g/dL (14.0-18.0); Mean Corpuscular Hemoglobin 31.4 pg (27.0-31.0); Mean Corpuscular Volume 93.8 fL (78.0-98.0); Platelet Count 265 10x3/uL (130-400); Red Blood Cell (RBC) Count 2.26 mill/uL (4.70-6.10); White Blood Cell (WBC) Count 16.00 10x3/uL (4.8-10.8)
[2025-04-18 20:53] LABS: Hematocrit 20.5 % (42.0-52.0); Hemoglobin 6.7 g/dL (14.0-18.0)
[2025-04-19 06:52] LABS: Anion Gap 15 mmol/L (10-20); BUN (Urea Nitrogen) 37 mg/dL (8.4-25.7); CK (CPK) 88 U/L (30-200); Calc. Creatinine Clearance 18 mL/min (70-130); Calcium 7.8 mg/dL (7.8-10.44); Carbon Dioxide 25 mmol/L (23-31); Chloride 106 mmol/L (98-107); Glucose 82 mg/dL (83-110); Potassium 3.4 mmol/L (3.5-5.1); Sodium 143 mmol/L (136-145)
[2025-04-19 07:01] LABS: #Basophils 0.08 10x3/uL (0.0-0.2); #Eosinophils 0.28 10x3/uL (0.0-0.7); #Monocytes 1.73 10x3/uL (0.11-0.59); #Neutrophils 14.42 10x3/uL (1.40-6.50); %Basophils 0.4 % (0.0-1.0); %Eosinophils 1.5 % (0.0-10.0); %Lymphocytes 10.8 % (21.0-51.0); %Monocytes 9.3 % (0.0-10.0); %Neutrophils 77.4 % (42.0-75.0); Hematocrit 28.9 % (42.0-52.0); Hemoglobin 9.8 g/dL (14.0-18.0); Mean Corpuscular Hemoglobin 30.2 pg (27.0-31.0); Mean Corpuscular Volume 88.9 fL (78.0-98.0); Platelet Count 257 10x3/uL (130-400); Red Blood Cell (RBC) Count 3.25 mill/uL (4.70-6.10); White Blood Cell (WBC) Count 18.64 10x3/uL (4.8-10.8)
[2025-04-19] MEDS ORDERED: Electrolyte Replacement Protocol 1 EACH FS SCH (14:15)
[2025-04-19 18:02] LABS: Protein, Urine Random Quant 73.0 mg/dL (1-14)
[2025-04-19] MEDS: Heparin 5,000 UNITS/ML VIAL SC SCH (22:00)
[2025-04-20 07:04] LABS: #Basophils 0.09 10x3/uL (0.0-0.2); #Eosinophils 0.28 10x3/uL (0.0-0.7); #Monocytes 1.73 10x3/uL (0.11-0.59); #Neutrophils 13.13 10x3/uL (1.40-6.50); %Basophils 0.5 % (0.0-1.0); %Eosinophils 1.6 % (0.0-10.0); %Lymphocytes 11.6 % (21.0-51.0); %Monocytes 9.9 % (0.0-10.0); %Neutrophils 75.5 % (42.0-75.0); Hematocrit 28.1 % (42.0-52.0); Hemoglobin 9.7 g/dL (14.0-18.0); Mean Corpuscular Hemoglobin 30.7 pg (27.0-31.0); Mean Corpuscular Volume 88.9 fL (78.0-98.0); Platelet Count 272 10x3/uL (130-400); Red Blood Cell (RBC) Count 3.16 mill/uL (4.70-6.10); White Blood Cell (WBC) Count 17.41 10x3/uL (4.8-10.8)
[2025-04-20 08:11] LABS: Chloride 111 mmol/L (98-107); Potassium 3.5 mmol/L (3.5-5.1); Sodium 145 mmol/L (136-145)
[2025-04-20 08:12] LABS: Calcium 8.0 mg/dL (7.8-10.44); Glucose 74 mg/dL (83-110)
[2025-04-20 08:13] LABS: Anion Gap 21 mmol/L (10-20); Carbon Dioxide 17 mmol/L (23-31)
[2025-04-20 08:16] LABS: BUN (Urea Nitrogen) 40 mg/dL (8.4-25.7); Calc. Creatinine Clearance 16 mL/min (70-130)
[2025-04-20 08:17] LABS: Magnesium 1.8 mg/dL (1.6-2.6)
[2025-04-20] MEDS: Calcitriol 0.25 MCG CAP PO SCH (08:57)
[2025-04-20 20:43] LABS: Anion Gap 17 mmol/L (10-20); BUN (Urea Nitrogen) 39 mg/dL (8.4-25.7); Calc. Creatinine Clearance 15 mL/min (70-130); Calcium 8.0 mg/dL (7.8-10.44); Carbon Dioxide 22 mmol/L (23-31); Chloride 110 mmol/L (98-107); Glucose 132 mg/dL (83-110); Potassium 3.2 mmol/L (3.5-5.1); Sodium 146 mmol/L (136-145)
[2025-04-21 05:39] LABS: #Basophils 0.12 10x3/uL (0.0-0.2); #Eosinophils 0.20 10x3/uL (0.0-0.7); #Monocytes 1.41 10x3/uL (0.11-0.59); #Neutrophils 12.06 10x3/uL (1.40-6.50); %Basophils 0.8 % (0.0-1.0); %Eosinophils 1.3 % (0.0-10.0); %Lymphocytes 10.4 % (21.0-51.0); %Monocytes 9.1 % (0.0-10.0); %Neutrophils 77.8 % (42.0-75.0); Hematocrit 29.5 % (42.0-52.0); Hemoglobin 9.4 g/dL (14.0-18.0); Mean Corpuscular Hemoglobin 29.7 pg (27.0-31.0); Mean Corpuscular Volume 93.1 fL (78.0-98.0); Platelet Count 320 10x3/uL (130-400); Red Blood Cell (RBC) Count 3.17 mill/uL (4.70-6.10); White Blood Cell (WBC) Count 15.50 10x3/uL (4.8-10.8)
[2025-04-21 05:52] LABS: Anion Gap 14 mmol/L (10-20); BUN (Urea Nitrogen) 39 mg/dL (8.4-25.7); Calc. Creatinine Clearance 15 mL/min (70-130); Calcium 8.1 mg/dL (7.8-10.44); Carbon Dioxide 20 mmol/L (23-31); Chloride 110 mmol/L (98-107); Glucose 92 mg/dL (83-110); Potassium 3.1 mmol/L (3.5-5.1); Sodium 141 mmol/L (136-145)
[2025-04-21] MEDS ORDERED: hydrALAZINE 20 MG/ML VIAL SLOW IVP PRN (08:52)
[2025-04-21 15:14] LABS: Anion Gap 14 mmol/L (10-20); BUN (Urea Nitrogen) 41 mg/dL (8.4-25.7); Calc. Creatinine Clearance 15 mL/min (70-130); Calcium 7.9 mg/dL (7.8-10.44); Carbon Dioxide 21 mmol/L (23-31); Chloride 111 mmol/L (98-107); Glucose 95 mg/dL (83-110); Potassium 3.4 mmol/L (3.5-5.1); Sodium 143 mmol/L (136-145)
[2025-04-21] MEDS: Sacubitril 49 MG/Valsartan 51 MG TABLET PO SCH ×2 (15:38→20:57)
[2025-04-21] MEDS ORDERED: Ketamine In 0.9 % NaCl 50 MG/5 ML SYRINGE ONE (17:52)
[2025-04-22 04:42] LABS: #Basophils 0.10 10x3/uL (0.0-0.2); #Eosinophils 0.10 10x3/uL (0.0-0.7); #Monocytes 1.13 10x3/uL (0.11-0.59); #Neutrophils 12.08 10x3/uL (1.40-6.50); %Basophils 0.7 % (0.0-1.0); %Eosinophils 0.7 % (0.0-10.0); %Lymphocytes 7.8 % (21.0-51.0); %Monocytes 7.7 % (0.0-10.0); %Neutrophils 82.5 % (42.0-75.0); Hematocrit 28.4 % (42.0-52.0); Hemoglobin 9.0 g/dL (14.0-18.0); Mean Corpuscular Hemoglobin 29.7 pg (27.0-31.0); Mean Corpuscular Volume 93.7 fL (78.0-98.0); Platelet Count 370 10x3/uL (130-400); Red Blood Cell (RBC) Count 3.03 mill/uL (4.70-6.10); White Blood Cell (WBC) Count 14.65 10x3/uL (4.8-10.8)
[2025-04-22 04:59] LABS: Anion Gap 13 mmol/L (10-20); BUN (Urea Nitrogen) 43 mg/dL (8.4-25.7); Calc. Creatinine Clearance 15 mL/min (70-130); Calcium 7.9 mg/dL (7.8-10.44); Carbon Dioxide 23 mmol/L (23-31); Chloride 111 mmol/L (98-107); Glucose 95 mg/dL (83-110); Potassium 3.3 mmol/L (3.5-5.1); Sodium 144 mmol/L (136-145)
[2025-04-22] MEDS: Multivit, Therapeutic 1 TAB PO SCH (08:12)
[2025-04-22] MEDS: Magnesium 2 GM/50 ML(in water) 2 GM in Premix 1 BAG IVPB SCH (09:02)
[2025-04-22] MEDS: Tuberculin PPD 0.1 ML SYRINGE (10 TEST VIAL) I-DERMAL SCH (17:57)
[2025-04-23] MEDS: valACYclovir 500 MG TAB PO SCH (00:41)
[2025-04-23 06:24] LABS: #Basophils 0.11 10x3/uL (0.0-0.2); #Eosinophils 0.27 10x3/uL (0.0-0.7); #Monocytes 1.66 10x3/uL (0.11-0.59); #Neutrophils 10.29 10x3/uL (1.40-6.50); %Basophils 0.8 % (0.0-1.0); %Eosinophils 2.0 % (0.0-10.0); %Lymphocytes 9.7 % (21.0-51.0); %Monocytes 12.1 % (0.0-10.0); %Neutrophils 74.6 % (42.0-75.0); Hematocrit 30.2 % (42.0-52.0); Hemoglobin 9.6 g/dL (14.0-18.0); Mean Corpuscular Hemoglobin 29.7 pg (27.0-31.0); Mean Corpuscular Volume 93.5 fL (78.0-98.0); Platelet Count 374 10x3/uL (130-400); Red Blood Cell (RBC) Count 3.23 mill/uL (4.70-6.10); White Blood Cell (WBC) Count 13.77 10x3/uL (4.8-10.8)
[2025-04-23 06:50] LABS: Anion Gap 13 mmol/L (10-20); BUN (Urea Nitrogen) 20 mg/dL (8.4-25.7); Calc. Creatinine Clearance 28 mL/min (70-130); Calcium 7.9 mg/dL (7.8-10.44); Carbon Dioxide 18 mmol/L (23-31); Chloride 111 mmol/L (98-107); Glucose 102 mg/dL (83-110); Potassium 3.4 mmol/L (3.5-5.1); Sodium 139 mmol/L (136-145)
[2025-04-23] MEDS ORDERED: Acetaminophen 500 MG TAB PO PRN (10:27)
[2025-04-23] MEDS ORDERED: HYDROcodone/Acetaminophen 5/325 mg Tablet PO PRN (10:27)
[2025-04-23] MEDS ORDERED: Acetaminophen 325 MG TAB PO PRN (10:55)
[2025-04-23] MEDS: NIFEdipine XL 30 MG ER.TAB PO SCH (11:33)
[2025-04-24 06:29] LABS: #Basophils 0.09 10x3/uL (0.0-0.2); #Eosinophils 0.11 10x3/uL (0.0-0.7); #Monocytes 1.57 10x3/uL (0.11-0.59); #Neutrophils 9.82 10x3/uL (1.40-6.50); %Basophils 0.7 % (0.0-1.0); %Eosinophils 0.8 % (0.0-10.0); %Lymphocytes 13.0 % (21.0-51.0); %Monocytes 11.7 % (0.0-10.0); %Neutrophils 73.1 % (42.0-75.0); Hematocrit 29.6 % (42.0-52.0); Hemoglobin 9.3 g/dL (14.0-18.0); Mean Corpuscular Hemoglobin 30.2 pg (27.0-31.0); Mean Corpuscular Volume 96.1 fL (78.0-98.0); Platelet Count 357 10x3/uL (130-400); Red Blood Cell (RBC) Count 3.08 mill/uL (4.70-6.10); White Blood Cell (WBC) Count 13.43 10x3/uL (4.8-10.8)
[2025-04-24 06:43] LABS: Anion Gap 12 mmol/L (10-20); BUN (Urea Nitrogen) 22 mg/dL (8.4-25.7); Calc. Creatinine Clearance 23 mL/min (70-130); Calcium 8.1 mg/dL (7.8-10.44); Carbon Dioxide 19 mmol/L (23-31); Chloride 113 mmol/L (98-107); Glucose 83 mg/dL (83-110); Potassium 3.4 mmol/L (3.5-5.1); Sodium 141 mmol/L (136-145)
[2025-04-24] MEDS ORDERED: NIFEdipine XL 30 MG ER.TAB PO SCH (09:00)
[2025-04-24] MEDS: Carvedilol 6.25 MG TAB PO SCH (20:32)
[2025-04-25 06:06] LABS: #Basophils 0.10 10x3/uL (0.0-0.2); #Eosinophils 0.05 10x3/uL (0.0-0.7); #Monocytes 1.42 10x3/uL (0.11-0.59); #Neutrophils 10.11 10x3/uL (1.40-6.50); %Basophils 0.7 % (0.0-1.0); %Eosinophils 0.4 % (0.0-10.0); %Lymphocytes 12.1 % (21.0-51.0); %Monocytes 10.6 % (0.0-10.0); %Neutrophils 75.8 % (42.0-75.0); Hematocrit 28.9 % (42.0-52.0); Hemoglobin 9.0 g/dL (14.0-18.0); Mean Corpuscular Hemoglobin 30.0 pg (27.0-31.0); Mean Corpuscular Volume 96.3 fL (78.0-98.0); Platelet Count 363 10x3/uL (130-400); Red Blood Cell (RBC) Count 3.00 mill/uL (4.70-6.10); White Blood Cell (WBC) Count 13.35 10x3/uL (4.8-10.8)
[2025-04-25 06:32] LABS: Anion Gap 11 mmol/L (10-20); BUN (Urea Nitrogen) 26 mg/dL (8.4-25.7); Calc. Creatinine Clearance 24 mL/min (70-130); Calcium 8.0 mg/dL (7.8-10.44); Carbon Dioxide 19 mmol/L (23-31); Chloride 117 mmol/L (98-107); Glucose 95 mg/dL (83-110); Potassium 3.5 mmol/L (3.5-5.1); Sodium 143 mmol/L (136-145)
[2025-04-25] MEDS ORDERED: READ PPD TEST SITE PO SCH (09:00)
[2025-04-25] MEDS: EPOETIN ALFA-EPBX (ESRD) 10,000 UNITS/ML VIAL SC SCH (12:55)
[2025-04-25] MEDS: Sodium Bicarbonate Tab 325 MG TAB PO SCH (15:40)
[2025-04-25 16:44] VITALS: BP 146/79; TEMP 98.2
== END 2025-04-25 17:33 | DRG 329 ==
LOC: ERS 07:57 → ERHOLD 10:04 → CCU 17:25 → SURG B 04-14 10:38
PROVIDERS: ADMIT Internal Medicine; ATTEND Internal Medicine Critical Care Medicine
PROC: 05HY33Z Insertion of Infusion Device into Upper Vein, Percutaneous Approach (ICD-10-PCS; 2025-04-07)
PROC: 04HY32Z Insertion of Monitoring Device into Lower Artery, Percutaneous Approach (ICD-10-PCS; 2025-04-07)
PROC: 0DTG0ZZ Resection of Left Large Intestine, Open Approach (ICD-10-PCS; principal; 2025-04-08)
PROC: 0D1E0Z4 Bypass Large Intestine to Cutaneous, Open Approach (ICD-10-PCS; 2025-04-08)
PROC: 07BP0ZZ Excision of Spleen, Open Approach (ICD-10-PCS; 2025-04-10)
PROC: 3E033XZ Introduction of Vasopressor into Peripheral Vein, Percutaneous Approach (ICD-10-PCS; 2025-04-11)
PROC: 4A133R1 Monitoring of Arterial Saturation, Peripheral, Percutaneous Approach (ICD-10-PCS; 2025-04-11)
PROC: 5A1945Z Respiratory Ventilation, 24-96 Consecutive Hours (ICD-10-PCS; 2025-04-11)
PROC: 3E03329 Introduction of Other Anti-infective into Peripheral Vein, Percutaneous Approach (ICD-10-PCS; 2025-04-13)
PROC: 30233J1 Transfusion of Nonautologous Serum Albumin into Peripheral Vein, Percutaneous Approach (ICD-10-PCS; 2025-04-15)
PROC: 5A1D70Z Performance of Urinary Filtration, Intermittent, Less than 6 Hours Per Day (ICD-10-PCS; 2025-04-15)
PROC: 30233L1 Transfusion of Nonautologous Fresh Plasma into Peripheral Vein, Percutaneous Approach (ICD-10-PCS; 2025-04-18)
PROC: 30233N1 Transfusion of Nonautologous Red Blood Cells into Peripheral Vein, Percutaneous Approach (ICD-10-PCS; 2025-04-18)
PROC: 30233K1 Transfusion of Nonautologous Frozen Plasma into Peripheral Vein, Percutaneous Approach (ICD-10-PCS; 2025-04-18)
PROC: 0JH63XZ Insertion of Tunneled Vascular Access Device into Chest Subcutaneous Tissue and Fascia, Percutaneous Approach (ICD-10-PCS; 2025-04-21)
PROC: 05HM33Z Insertion of Infusion Device into Right Internal Jugular Vein, Percutaneous Approach (ICD-10-PCS; 2025-04-21)
PROC: B5131ZA Fluoroscopy of Right Jugular Veins using Low Osmolar Contrast, Guidance (ICD-10-PCS; 2025-04-21)
PROC: 5A1D70Z Performance of Urinary Filtration, Intermittent, Less than 6 Hours Per Day (ICD-10-PCS; 2025-04-22)
PROC: 5A1D70Z Performance of Urinary Filtration, Intermittent, Less than 6 Hours Per Day (ICD-10-PCS; 2025-04-25)
DX: K55.9 Vascular disorder of intestine, unspecified (principal); G93.41 Metabolic encephalopathy; N18.6 End stage renal disease; J96.01 Acute respiratory failure with hypoxia; R57.1 Hypovolemic shock; I24.9 Acute ischemic heart disease, unspecified; N17.9 Acute kidney failure, unspecified; I50.22 Chronic systolic (congestive) heart failure; I42.9 Cardiomyopathy, unspecified; I13.2 Hypertensive heart and chronic kidney disease with heart failure and with stage 5 chronic kidney disease, or end stage renal disease; I24.89 Other forms of acute ischemic heart disease; E87.20 Acidosis, unspecified; I5A Non-ischemic myocardial injury (non-traumatic); D62 Acute posthemorrhagic anemia; F32.A Depression, unspecified; E88.09 Other disorders of plasma-protein metabolism, not elsewhere classified; E21.3 Hyperparathyroidism, unspecified; T67.5XXA Heat exhaustion, unspecified, initial encounter; E78.00 Pure hypercholesterolemia, unspecified; R74.01 Elevation of levels of liver transaminase levels; G47.33 Obstructive sleep apnea (adult) (pediatric); E87.5 Hyperkalemia; D72.829 Elevated white blood cell count, unspecified; J44.9 Chronic obstructive pulmonary disease, unspecified; Z95.5 Presence of coronary angioplasty implant and graft; Z95.810 Presence of automatic (implantable) cardiac defibrillator; Z88.1 Allergy status to other antibiotic agents; Z87.442 Personal history of urinary calculi; Z98.890 Other specified postprocedural states; Z87.891 Personal history of nicotine dependence; Z79.899 Other long term (current) drug therapy; Z79.82 Long term (current) use of aspirin; Z79.2 Long term (current) use of antibiotics
CPT/HCPCS: 36415; 36430; 36600; 51798; 70450; 71045; 71046; 71250; 74018; 74177; 74230; 76705; 78226; 80048; 80053; 80061; 80076; 80202; 81001; 82140; 82306; 82550; 82570; 82607; 82805; 83036; 83605; 83690; 83735; 83880; 83970; 84100; 84156; 84443; 84484; 85025; 85027; 85610; 85730; 86141; 86580; 86704; 86706; 86803; 86850; 86900; 86901; 87040; 87086; 87149; 87340; 87426; 88305; 88307; 90471; 90620; 90648; 90677; 90734; 90935; 93005; 93306; 94002; 94003; 94640; 96361; 96365; 96367; 96375; 97139; A4649; A6258; A9537; C1750; C1769; G0009; G0257; J0169; J0613; J0665; J0696; J1100; J1642; J1644; J2060; J2250; J2272; J2470; J2543; J2704; J2919; J3373; J3475; J3490; J7030; J7050; J7070; P9016; P9035; P9045; P9047; P9059; Q5105; Q9963; Q9967

== ENCOUNTER 2025-05-01 21:11 | Inpatient (IN) | payer MEDICARE ==
[2025-05-01] MEDS ORDERED: Ondansetron PF 4 MG/2 ML Vial ONE (23:42)
[2025-05-01 23:51] LABS: #Basophils 0.07 10x3/uL (0.0-0.2); #Eosinophils 0.24 10x3/uL (0.0-0.7); #Monocytes 1.39 10x3/uL (0.11-0.59); #Neutrophils 13.27 10x3/uL (1.40-6.50); %Basophils 0.4 % (0.0-1.0); %Eosinophils 1.4 % (0.0-10.0); %Lymphocytes 10.3 % (21.0-51.0); %Monocytes 8.3 % (0.0-10.0); %Neutrophils 78.8 % (42.0-75.0); Hematocrit 29.2 % (42.0-52.0); Hemoglobin 9.4 g/dL (14.0-18.0); Mean Corpuscular Hemoglobin 30.2 pg (27.0-31.0); Mean Corpuscular Volume 93.9 fL (78.0-98.0); Platelet Count 382 10x3/uL (130-400); Red Blood Cell (RBC) Count 3.11 mill/uL (4.70-6.10); White Blood Cell (WBC) Count 16.84 10x3/uL (4.8-10.8)
[2025-05-02 00:05] LABS: INR-International Normal Ratio 1.2; PTT 27.9 sec (22.9-36.1); Prothrombin Time 15.1 sec (12.0-14.7)
[2025-05-02 00:18] LABS: ALT (SGPT) 172 U/L (Less than 45); AST (SGOT) 340 U/L (11-34); Albumin 2.4 g/dL (3.1-4.5); Alkaline Phosphatase 396 U/L (40-110); Anion Gap 18 mmol/L (10-20); BUN (Urea Nitrogen) 21 mg/dL (8.4-25.7); Bilirubin, Total 1.3 mg/dL (0.3-1.2); Calc. Creatinine Clearance 0 mL/min (70-130); Calcium 8.4 mg/dL (7.8-10.44); Carbon Dioxide 22 mmol/L (23-31); Chloride 109 mmol/L (98-107); Globulin 3.6 g/dL (2.4-3.5); Glucose 114 mg/dL (83-110); Lipase 58 U/L (8-78); Potassium 2.6 mmol/L (3.5-5.1); Sodium 146 mmol/L (136-145)
[2025-05-02] MEDS ORDERED: Ondansetron PF 4 MG/2 ML Vial IVP PRN (04:19)
[2025-05-02] MEDS ORDERED: Dextrose 50% Abboject 50 ML SYRINGE SLOW IVP PRN (04:19)
[2025-05-02] MEDS ORDERED: Acetaminophen 325 MG TAB PO PRN (04:19)
[2025-05-02] MEDS ORDERED: Glucagon 1 MG/ML KIT IM PRN (04:19)
[2025-05-02] MEDS ORDERED: Methocarbamol 500 MG TAB PO PRN (04:42)
[2025-05-02 06:26] LABS: #Basophils 0.06 10x3/uL (0.0-0.2); #Eosinophils 0.12 10x3/uL (0.0-0.7); #Monocytes 1.65 10x3/uL (0.11-0.59); #Neutrophils 14.53 10x3/uL (1.40-6.50); %Basophils 0.3 % (0.0-1.0); %Eosinophils 0.7 % (0.0-10.0); %Lymphocytes 9.2 % (21.0-51.0); %Monocytes 9.1 % (0.0-10.0); %Neutrophils 79.8 % (42.0-75.0); Hematocrit 31.3 % (42.0-52.0); Hemoglobin 9.6 g/dL (14.0-18.0); Mean Corpuscular Hemoglobin 29.4 pg (27.0-31.0); Mean Corpuscular Volume 96.0 fL (78.0-98.0); Platelet Count 392 10x3/uL (130-400); Red Blood Cell (RBC) Count 3.26 mill/uL (4.70-6.10); White Blood Cell (WBC) Count 18.20 10x3/uL (4.8-10.8)
[2025-05-02 06:41] VITALS: BMI 22.7
[2025-05-02 06:54] LABS: Magnesium 1.4 mg/dL (1.6-2.6)
[2025-05-02 07:10] LABS: ALT (SGPT) 214 U/L (Less than 45); AST (SGOT) 324 U/L (11-34); Albumin 2.4 g/dL (3.1-4.5); Alkaline Phosphatase 433 U/L (40-110); Anion Gap 13 mmol/L (10-20); BUN (Urea Nitrogen) 21 mg/dL (8.4-25.7); Bilirubin, Direct 1.6 mg/dL (0.1-0.3); Bilirubin, Total 1.9 mg/dL (0.3-1.2); Calc. Creatinine Clearance 43 mL/min (70-130); Calcium 8.5 mg/dL (7.8-10.44); Carbon Dioxide 25 mmol/L (23-31); Chloride 109 mmol/L (98-107); Glucose 102 mg/dL (83-110); Potassium 3.3 mmol/L (3.5-5.1); Sodium 144 mmol/L (136-145)
[2025-05-02] MEDS: Carvedilol 6.25 MG TAB PO SCH (08:35)
[2025-05-02] MEDS: Magnesium Sulfate In Water 4 GM in Premix 1 BAG IVPB SCH (08:36)
[2025-05-02] MEDS ORDERED: Iopamidol-370 76% 500 ML MDV (1 ML CHARGE) ONE (12:55)
[2025-05-02] MEDS ORDERED: Sodium Bicarbonate 2.5 MEQ/5 ML SDV ONE (15:44)
[2025-05-02] MEDS ORDERED: Lidocaine 1% w/Epinephrine 1:100K 20 ML VIAL ONE (15:44)
[2025-05-03 04:38] LABS: ALT (SGPT) 192 U/L (Less than 45); AST (SGOT) 160 U/L (11-34); Albumin 2.1 g/dL (3.1-4.5); Alkaline Phosphatase 385 U/L (40-110); Anion Gap 11 mmol/L (10-20); BUN (Urea Nitrogen) 15 mg/dL (8.4-25.7); Bilirubin, Total 1.3 mg/dL (0.3-1.2); Calc. Creatinine Clearance 44 mL/min (70-130); Calcium 8.1 mg/dL (7.8-10.44); Carbon Dioxide 24 mmol/L (23-31); Chloride 112 mmol/L (98-107); Globulin 3.5 g/dL (2.4-3.5); Glucose 95 mg/dL (83-110); Potassium 3.5 mmol/L (3.5-5.1); Sodium 143 mmol/L (136-145)
[2025-05-03 08:10] LABS: #Basophils 0.12 10x3/uL (0.0-0.2); #Eosinophils 1.06 10x3/uL (0.0-0.7); #Monocytes 1.12 10x3/uL (0.11-0.59); #Neutrophils 14.55 10x3/uL (1.40-6.50); %Basophils 0.6 % (0.0-1.0); %Eosinophils 5.6 % (0.0-10.0); %Lymphocytes 10.5 % (21.0-51.0); %Monocytes 5.9 % (0.0-10.0); %Neutrophils 76.6 % (42.0-75.0); Hematocrit 27.4 % (42.0-52.0); Hemoglobin 8.5 g/dL (14.0-18.0); Mean Corpuscular Hemoglobin 29.9 pg (27.0-31.0); Mean Corpuscular Volume 96.5 fL (78.0-98.0); Platelet Count 317 10x3/uL (130-400); Red Blood Cell (RBC) Count 2.84 mill/uL (4.70-6.10); White Blood Cell (WBC) Count 19.00 10x3/uL (4.8-10.8)
[2025-05-03 12:54] VITALS: BMI 22.7
[2025-05-03] MEDS: EPOETIN ALFA-EPBX (ESRD) 40,000 UNITS/ML VIAL SC SCH (16:41)
[2025-05-03] MEDS: Sodium Bicarbonate Tab 325 MG TAB PO SCH (20:23)
[2025-05-03] MEDS: Aspirin 81 mg Enteric Coated Tablet PO SCH (20:23)
[2025-05-03] MEDS: Budesonide DR 3 MG CAP PO SCH (20:26)
[2025-05-03] MEDS ORDERED: Carvedilol 3.125 MG TAB PO SCH (21:00)
[2025-05-04 04:21] LABS: #Basophils 0.11 10x3/uL (0.0-0.2); #Eosinophils 0.69 10x3/uL (0.0-0.7); #Monocytes 0.76 10x3/uL (0.11-0.59); #Neutrophils 13.64 10x3/uL (1.40-6.50); %Basophils 0.7 % (0.0-1.0); %Eosinophils 4.1 % (0.0-10.0); %Lymphocytes 8.0 % (21.0-51.0); %Monocytes 4.6 % (0.0-10.0); %Neutrophils 81.7 % (42.0-75.0); Hematocrit 28.4 % (42.0-52.0); Hemoglobin 8.9 g/dL (14.0-18.0); Mean Corpuscular Hemoglobin 30.0 pg (27.0-31.0); Mean Corpuscular Volume 95.6 fL (78.0-98.0); Platelet Count 368 10x3/uL (130-400); Red Blood Cell (RBC) Count 2.97 mill/uL (4.70-6.10); White Blood Cell (WBC) Count 16.68 10x3/uL (4.8-10.8)
[2025-05-04 04:35] LABS: ALT (SGPT) 132 U/L (Less than 45); AST (SGOT) 57 U/L (11-34); Albumin 2.2 g/dL (3.1-4.5); Alkaline Phosphatase 321 U/L (40-110); Anion Gap 11 mmol/L (10-20); BUN (Urea Nitrogen) 11 mg/dL (8.4-25.7); Bilirubin, Total 0.7 mg/dL (0.3-1.2); Calc. Creatinine Clearance 42 mL/min (70-130); Calcium 8.4 mg/dL (7.8-10.44); Carbon Dioxide 27 mmol/L (23-31); Chloride 111 mmol/L (98-107); Globulin 3.4 g/dL (2.4-3.5); Glucose 105 mg/dL (83-110); Potassium 3.6 mmol/L (3.5-5.1); Sodium 145 mmol/L (136-145)
[2025-05-04] MEDS: Rosuvastatin 10 MG TAB PO SCH (09:16)
[2025-05-04] MEDS ORDERED: PROPOFOL 40 ML ONE (11:39)
[2025-05-04] MEDS ORDERED: Lidocaine 1% PF 5 ML VIAL ONE (11:40)
[2025-05-04] MEDS ORDERED: Bupivacaine 0.25% HCL 30 ML VIAL ONE (12:14)
[2025-05-04] MEDS ORDERED: CEFAZOLIN 1 GM VIAL ONE (12:42)
[2025-05-05 04:34] LABS: ALT (SGPT) 65 U/L (Less than 45); AST (SGOT) 28 U/L (11-34); Albumin 2.2 g/dL (3.1-4.5); Alkaline Phosphatase 248 U/L (40-110); Anion Gap 14 mmol/L (10-20); BUN (Urea Nitrogen) 9 mg/dL (8.4-25.7); Bilirubin, Total 0.5 mg/dL (0.3-1.2); Calc. Creatinine Clearance 45 mL/min (70-130); Calcium 8.3 mg/dL (7.8-10.44); Carbon Dioxide 24 mmol/L (23-31); Chloride 112 mmol/L (98-107); Globulin 3.6 g/dL (2.4-3.5); Glucose 87 mg/dL (83-110); Potassium 2.9 mmol/L (3.5-5.1); Sodium 147 mmol/L (136-145)
[2025-05-05 06:33] LABS: #Basophils 0.12 10x3/uL (0.0-0.2); #Eosinophils 0.84 10x3/uL (0.0-0.7); #Monocytes 1.30 10x3/uL (0.11-0.59); #Neutrophils 11.72 10x3/uL (1.40-6.50); %Basophils 0.7 % (0.0-1.0); %Eosinophils 4.9 % (0.0-10.0); %Lymphocytes 16.9 % (21.0-51.0); %Monocytes 7.6 % (0.0-10.0); %Neutrophils 69.0 % (42.0-75.0); Hematocrit 30.9 % (42.0-52.0); Hemoglobin 9.4 g/dL (14.0-18.0); Mean Corpuscular Hemoglobin 29.6 pg (27.0-31.0); Mean Corpuscular Volume 97.2 fL (78.0-98.0); Platelet Count 393 10x3/uL (130-400); Red Blood Cell (RBC) Count 3.18 mill/uL (4.70-6.10); White Blood Cell (WBC) Count 17.00 10x3/uL (4.8-10.8)
[2025-05-05] MEDS: Aspirin 81 mg Enteric Coated Tablet PO SCH (08:42)
[2025-05-05 14:10] LABS: Anion Gap 15 mmol/L (10-20); BUN (Urea Nitrogen) 10 mg/dL (8.4-25.7); Calc. Creatinine Clearance 51 mL/min (70-130); Calcium 8.4 mg/dL (7.8-10.44); Carbon Dioxide 20 mmol/L (23-31); Chloride 112 mmol/L (98-107); Glucose 108 mg/dL (83-110); Potassium 3.8 mmol/L (3.5-5.1); Sodium 143 mmol/L (136-145)
[2025-05-06 04:00] LABS: #Basophils 0.09 10x3/uL (0.0-0.2); #Eosinophils 0.06 10x3/uL (0.0-0.7); #Monocytes 0.82 10x3/uL (0.11-0.59); #Neutrophils 12.28 10x3/uL (1.40-6.50); %Basophils 0.6 % (0.0-1.0); %Eosinophils 0.4 % (0.0-10.0); %Lymphocytes 14.2 % (21.0-51.0); %Monocytes 5.2 % (0.0-10.0); %Neutrophils 78.5 % (42.0-75.0); Hematocrit 33.7 % (42.0-52.0); Hemoglobin 10.2 g/dL (14.0-18.0); Mean Corpuscular Hemoglobin 29.5 pg (27.0-31.0); Mean Corpuscular Volume 97.4 fL (78.0-98.0); Platelet Count 435 10x3/uL (130-400); Red Blood Cell (RBC) Count 3.46 mill/uL (4.70-6.10); White Blood Cell (WBC) Count 15.65 10x3/uL (4.8-10.8)
[2025-05-06 04:20] LABS: ALT (SGPT) 42 U/L (Less than 45); AST (SGOT) 24 U/L (11-34); Albumin 2.4 g/dL (3.1-4.5); Alkaline Phosphatase 238 U/L (40-110); Anion Gap 12 mmol/L (10-20); BUN (Urea Nitrogen) 8 mg/dL (8.4-25.7); Bilirubin, Total 0.5 mg/dL (0.3-1.2); Calc. Creatinine Clearance 52 mL/min (70-130); Calcium 8.8 mg/dL (7.8-10.44); Carbon Dioxide 21 mmol/L (23-31); Chloride 115 mmol/L (98-107); Globulin 3.9 g/dL (2.4-3.5); Glucose 87 mg/dL (83-110); Potassium 3.7 mmol/L (3.5-5.1); Sodium 144 mmol/L (136-145)
[2025-05-07 03:50] LABS: #Basophils 0.12 10x3/uL (0.0-0.2); #Eosinophils 0.22 10x3/uL (0.0-0.7); #Monocytes 1.09 10x3/uL (0.11-0.59); #Neutrophils 11.42 10x3/uL (1.40-6.50); %Basophils 0.8 % (0.0-1.0); %Eosinophils 1.4 % (0.0-10.0); %Lymphocytes 14.8 % (21.0-51.0); %Monocytes 7.1 % (0.0-10.0); %Neutrophils 74.7 % (42.0-75.0); Hematocrit 32.4 % (42.0-52.0); Hemoglobin 9.8 g/dL (14.0-18.0); Mean Corpuscular Hemoglobin 29.3 pg (27.0-31.0); Mean Corpuscular Volume 97.0 fL (78.0-98.0); Platelet Count 452 10x3/uL (130-400); Red Blood Cell (RBC) Count 3.34 mill/uL (4.70-6.10); White Blood Cell (WBC) Count 15.31 10x3/uL (4.8-10.8)
[2025-05-07 04:16] LABS: Anion Gap 13 mmol/L (10-20); BUN (Urea Nitrogen) 11 mg/dL (8.4-25.7); Calc. Creatinine Clearance 64 mL/min (70-130); Calcium 8.7 mg/dL (7.8-10.44); Carbon Dioxide 19 mmol/L (23-31); Chloride 113 mmol/L (98-107); Glucose 86 mg/dL (83-110); Potassium 3.3 mmol/L (3.5-5.1); Sodium 142 mmol/L (136-145)
[2025-05-07 16:31] VITALS: BP 167/88; TEMP 98.3
== END 2025-05-07 16:45 | disposition home or self-care (01) | DRG 982 ==
LOC: ERS 21:11 → 2SE 05-02 04:26
PROVIDERS: ADMIT Surgery Trauma Surgery; ATTEND Surgery Trauma Surgery
PROC: 3E03329 Introduction of Other Anti-infective into Peripheral Vein, Percutaneous Approach (ICD-10-PCS; 2025-05-02)
PROC: 05PY03Z Removal of Infusion Device from Upper Vein, Open Approach (ICD-10-PCS; principal; 2025-05-04)
PROC: 3E033XZ Introduction of Vasopressor into Peripheral Vein, Percutaneous Approach (ICD-10-PCS; 2025-05-04)
DX: K81.0 Acute cholecystitis (principal); E87.0 Hyperosmolality and hypernatremia; I13.0 Hypertensive heart and chronic kidney disease with heart failure and stage 1 through stage 4 chronic kidney disease, or unspecified chronic kidney disease; I50.22 Chronic systolic (congestive) heart failure; M62.82 Rhabdomyolysis; E78.5 Hyperlipidemia, unspecified; Z98.890 Other specified postprocedural states; J44.9 Chronic obstructive pulmonary disease, unspecified; Z72.0 Tobacco use; Z88.8 Allergy status to other drugs, medicaments and biological substances; Z95.810 Presence of automatic (implantable) cardiac defibrillator; E87.6 Hypokalemia; F32.A Depression, unspecified; N18.30 Chronic kidney disease, stage 3 unspecified; I49.5 Sick sinus syndrome; I25.10 Atherosclerotic heart disease of native coronary artery without angina pectoris; K52.89 Other specified noninfective gastroenteritis and colitis; D64.9 Anemia, unspecified; Z79.899 Other long term (current) drug therapy
CPT/HCPCS: 36415; 36416; 49406; 71045; 71275; 74177; 76705; 77002; 78226; 80048; 80053; 80076; 83605; 83690; 83735; 84145; 84484; 85025; 85610; 85730; 87040; 93005; 96374; 96375; 97139; 99152; 99153; A9537; C1729; C1769; J0169; J0665; J0690; J2250; J2543; J2704; J3475; J3480; J7030; J7042; Q5105; Q9967

== ENCOUNTER 2025-05-20 10:49 | Emergency (ER) | payer MEDICARE ==
[2025-05-20 11:35] LABS: #Basophils 0.12 10x3/uL (0.0-0.2); #Eosinophils 0.53 10x3/uL (0.0-0.7); #Monocytes 0.63 10x3/uL (0.11-0.59); #Neutrophils 4.03 10x3/uL (1.40-6.50); %Basophils 1.3 % (0.0-1.0); %Eosinophils 5.6 % (0.0-10.0); %Lymphocytes 43.5 % (21.0-51.0); %Monocytes 6.7 % (0.0-10.0); %Neutrophils 42.5 % (42.0-75.0); Hematocrit 39.4 % (42.0-52.0); Hemoglobin 11.9 g/dL (14.0-18.0); Mean Corpuscular Hemoglobin 29.2 pg (27.0-31.0); Mean Corpuscular Volume 96.6 fL (78.0-98.0); Platelet Count 435 10x3/uL (130-400); Red Blood Cell (RBC) Count 4.08 mill/uL (4.70-6.10); White Blood Cell (WBC) Count 9.47 10x3/uL (4.8-10.8)
[2025-05-20] MEDS ORDERED: Iopamidol-370 76% 500 ML MDV (1 ML CHARGE) ONE (11:59)
[2025-05-20 12:02] LABS: ALT (SGPT) 22 U/L (Less than 45); AST (SGOT) 34 U/L (11-34); Albumin 2.9 g/dL (3.1-4.5); Alkaline Phosphatase 97 U/L (40-110); Anion Gap 13 mmol/L (10-20); BUN (Urea Nitrogen) 20 mg/dL (8.4-25.7); Bilirubin, Total 0.2 mg/dL (0.3-1.2); Calc. Creatinine Clearance 0 mL/min (70-130); Calcium 10.1 mg/dL (7.8-10.44); Carbon Dioxide 27 mmol/L (23-31); Chloride 106 mmol/L (98-107); Globulin 4.3 g/dL (2.4-3.5); Glucose 96 mg/dL (83-110); Potassium 5.1 mmol/L (3.5-5.1); Sodium 141 mmol/L (136-145)
[2025-05-20 14:43] LABS: Glucose, Urine (Dipstick) Negative (Negative); Leukocyte Negative (Negative); Protein, Urine (Dipstick) Trace mg/dL (Neg-Trace); Specific Gravity, Urine 1.010 (1.005-1.030)
[2025-05-20 14:53] LABS: CAUTI Indications for Culture Dysuria,urgency,freq; RBC/HPF 0-3 HPF (0-3); WBC/HPF 0-3 HPF (0-3)
[2025-05-20 14:54] LABS: Urine Culture Reflex No No
== END 2025-05-20 15:40 | disposition home or self-care (01) ==
LOC: ERS 10:49
DX: Z43.3 Encounter for attention to colostomy (principal); I11.0 Hypertensive heart disease with heart failure; I50.20 Unspecified systolic (congestive) heart failure; I42.9 Cardiomyopathy, unspecified; I71.40 Abdominal aortic aneurysm, without rupture, unspecified; I49.5 Sick sinus syndrome; E78.00 Pure hypercholesterolemia, unspecified; J44.9 Chronic obstructive pulmonary disease, unspecified; K52.832 Lymphocytic colitis; F17.290 Nicotine dependence, other tobacco product, uncomplicated; Z95.810 Presence of automatic (implantable) cardiac defibrillator; Z79.899 Other long term (current) drug therapy; Z79.2 Long term (current) use of antibiotics
CPT/HCPCS: 71045; 74177; 80053; 81001; 85025; 93005

== ENCOUNTER 2025-07-08 16:21 | Emergency (ER) | payer MEDICARE ==
[~2025-07-08 16:21] MED LIST: Iopamidol-370 76% 500 ML MDV (1 ML CHARGE) ONE
[2025-07-08 17:30] LABS: #Basophils 0.11 10x3/uL (0.0-0.2); #Eosinophils 0.78 10x3/uL (0.0-0.7); #Monocytes 0.77 10x3/uL (0.11-0.59); #Neutrophils 5.68 10x3/uL (1.40-6.50); %Basophils 1.1 % (0.0-1.0); %Eosinophils 7.7 % (0.0-10.0); %Lymphocytes 26.9 % (21.0-51.0); %Monocytes 7.6 % (0.0-10.0); %Neutrophils 56.5 % (42.0-75.0); Hematocrit 33.0 % (42.0-52.0); Hemoglobin 10.5 g/dL (14.0-18.0); Mean Corpuscular Hemoglobin 29.8 pg (27.0-31.0); Mean Corpuscular Volume 93.8 fL (78.0-98.0); Platelet Count 373 10x3/uL (130-400); Red Blood Cell (RBC) Count 3.52 mill/uL (4.70-6.10); White Blood Cell (WBC) Count 10.07 10x3/uL (4.8-10.8)
[2025-07-08 17:45] LABS: ALT (SGPT) 25 U/L (Less than 45); AST (SGOT) 34 U/L (11-34); Albumin 3.1 g/dL (3.1-4.5); Alkaline Phosphatase 62 U/L (40-110); Anion Gap 10 mmol/L (10-20); BUN (Urea Nitrogen) 24 mg/dL (8.4-25.7); Bilirubin, Total 0.1 mg/dL (0.3-1.2); Calc. Creatinine Clearance 0 mL/min (70-130); Calcium 9.6 mg/dL (7.8-10.44); Carbon Dioxide 24 mmol/L (23-31); Chloride 112 mmol/L (98-107); Globulin 3.3 g/dL (2.4-3.5); Glucose 87 mg/dL (83-110); Potassium 4.9 mmol/L (3.5-5.1); Sodium 141 mmol/L (136-145)
== END 2025-07-08 19:14 | disposition home or self-care (01) ==
LOC: ERS 16:21
DX: Z48.03 Encounter for change or removal of drains (principal); J44.9 Chronic obstructive pulmonary disease, unspecified; I50.9 Heart failure, unspecified; I11.0 Hypertensive heart disease with heart failure; F17.290 Nicotine dependence, other tobacco product, uncomplicated; Z90.49 Acquired absence of other specified parts of digestive tract
CPT/HCPCS: 74177; 80053; 85025; 99283; Q9967